=== PATIENT | male | born 1960 | race Caucasian/White ===

== ENCOUNTER → 2020-04-26 | Outpatient (CLI) | payer BC ==
--- NOTE | 2020-04-26 11:35 | XR ---
EXAMINATION TYPE: XR knee complete RT DATE OF EXAM: 04/26/2020 CLINICAL HISTORY: Increased generalized knee pain TECHNIQUE: Three views of the right knee are obtained. COMPARISON: None. FINDINGS: There is no acute fracture/dislocation evident in right knee. Moderate narrowing patellofe moral compartment with mild spurring. Mild to moderate narrowing medial tibiofemoral compartment. The overlying soft tissue appears unremarkable. IMPRESSION: As above.
--- NOTE | 2020-04-26 12:00 | XR ---
EXAMINATION TYPE: XR lumbosacral spine min 4V DATE OF EXAM: 04/26/2020 CLINICAL HISTORY: Chronic worsening low back pain. TECHNIQUE: Frontal, lateral, and oblique images of the lumbar spine are obtained. COMPARISON: None FINDINGS: There are 5 lumbar type vertebral bodies identified. There is dextroconvex scoliosis cente red at L2 level. Lateral images show straightening of lumbar spine. Vertebral body heights are mainta ined. Mild to moderate disc space narrowing and spurring L3-L4 level. Mild anterior spurring L1-L2 an d L2-L3 levels. Oblique images are within normal limits. Mild vascular calcification overlying abdomi nal aorta is noted. IMPRESSION: As above.
== END | disposition home or self-care (01) ==
LOC: RADXRYALE 10:50
PROVIDERS: ATTEND Family Medicine
DX: M25.861 Other specified joint disorders, right knee (principal); M25.761 Osteophyte, right knee; M99.73 Connective tissue and disc stenosis of intervertebral foramina of lumbar region; M41.86 Other forms of scoliosis, lumbar region; M53.86 Other specified dorsopathies, lumbar region
CPT/HCPCS: 72110

== ENCOUNTER → 2021-06-27 | Outpatient (CLI) | payer BC ==
--- NOTE | 2021-06-27 16:11 | XR ---
EXAMINATION TYPE: XR Hip Complete LT DATE OF EXAM: 06/27/2021 CLINICAL HISTORY: Worsening left hip pain. TECHNIQUE: AP and frogleg views of the left hip are obtained. COMPARISON: None. FINDINGS: There is no acute fracture/dislocation evident in the left hip. There is advanced superior joint space loss with [id number] appearance and endplate sclerosis. There is beginning loss of nor mal spherical shape with mild to moderate acetabular spurring. Overlying soft tissue is unremarkable. IMPRESSION: As above. Advanced left hip joint arthropathy noted. Advise orthopedic surgical referral.
== END | disposition home or self-care (01) ==
LOC: RADXRYALE 14:48
PROVIDERS: ATTEND Family Medicine
DX: M12.852 Other specific arthropathies, not elsewhere classified, left hip (principal); M25.752 Osteophyte, left hip
CPT/HCPCS: 73502

== ENCOUNTER 2023-11-04 14:08 | Emergency (ER) | payer BC ==
[2023-11-04 14:19] VITALS: PULSE 64
--- NOTE | 2023-11-04 14:36 | ED ---
Extremity Problem HPI - General Chief complaint: Extremity Problem,Nontraumatic Stated complaint: leg pain/swelling Time Seen by Provider: 11/04/23 14:20 Source: patient, RN notes reviewed Mode of arrival: ambulatory Limitations: no limitations - History of Present Illness Initial comments: This is a 63-year-old male with no significant past medical history who presents to the emergency department referral from urgent care for chief complaint of left lower extremity calf cramping since Saturday. Patient was advised to report to the emergency department to rule out possible blood clot. Patient is having pain with ambulation plantarflexion and dorsiflexion of the left foot. Patient states that the cramping is constant and is described as a squeezing sensation. Patient denies symptoms of dysphagia, heart palpitations, dizziness, lightheadedness. Patient denies history of DVT, PE, MT, CVA. Denies blood thinner use. - Related Data Allergies Allergy/AdvReac Type Severity Reaction Status Date / Time No Known Allergies Allergy Verified 11/04/23 14:19 Review of Systems ROS Statement: Those systems with pertinent positive or pertinent negative responses have been documented in the HPI. ROS Other: All systems not noted in ROS Statement are negative. Past Medical History Past Medical History: No Reported History History of Any Multi-Drug Resistant Organisms: None Reported Past Surgical History: Joint Replacement, Orthopedic Surgery Past Psychological History: No Psychological Hx Reported Smoking Status: Current every day smoker Past Alcohol Use History: None Reported Past Drug Use History: None Reported General Exam Limitations: no limitations General appearance: alert, in no apparent distress Head exam: Present: atraumatic, normocephalic, normal inspection Eye exam: Present: normal appearance, PERRL, EOMI. Absent: scleral icterus, conjunctival injection, periorbital swelling ENT exam: Present: normal exam, mucous membranes moist Neck exam: Present: normal inspection. Absent: tenderness, meningismus, lymphadenopathy Respiratory exam: Present: normal lung sounds bilaterally. Absent: respiratory distress, wheezes, rales, rhonchi, stridor Cardiovascular Exam: Present: regular rate, normal rhythm, normal heart sounds. Absent: systolic murmur, diastolic murmur, rubs, gallop, clicks GI/Abdominal exam: Present: soft, normal bowel sounds. Absent: distended, tenderness, guarding, rebound, rigid Left Lower Leg exam: Present: tenderness, swelling (tortuous dialted vessels). Absent: normal inspection, erythema (posteror calf with palpation and ROM of ankle), palpable cord Neurovascular tendon exam: Present: no vascular compromise Gait: observed and normal Back exam: Present: normal inspection Neurological exam: Present: alert, oriented X3, CN II-XII intact Psychiatric exam: Present: normal affect, normal mood Skin exam: Present: warm, dry, intact, normal color. Absent: rash Course Vital Signs 11/04/23 14:16 Temperature 97.4 F L Pulse Rate 64 Respiratory 20 Rate Blood Pressure 138/78 O2 Sat by Pulse 99 Oximetry Medical Decision Making - Medical Decision Making Was pt. sent in by a medical professional or institution (, PA, LUMBER SORTER MACHINE, urgent care, hospital, or fpc...) When possible be specific @ -Sent in by urgent care to rule out a possible blood clot of the left lower extremity. Did you speak to anyone other than the patient for history (EMS, parent, family, police, friend...)? What history was obtained from this source @ -No Did you review nursing and triage notes (agree or disagree)? Why? @ -I reviewed and agree with nursing and triage notes Were old charts reviewed (outside hosp., previous admission, EMS record, old EKG, old radiological studies, urgent care reports/EKG's, fpc records)? Report findings @ -No old charts were reviewed Differential Diagnosis (chest pain, altered mental status, abdominal pain women, abdominal pain men, vaginal bleeding, weakness, fever, dyspnea, syncope, headache, dizziness, GI bleed, back pain, seizure, CVA, palpatations, mental health, musculoskeletal)? @ -venous insufficiency, deep vein thrombosis, superficial thrombophlebitis, veins, this list is not all inclusive. EKG interpreted by me (3pts min.). @ -None X-rays interpreted by me (1pt min.). @ -None done CT interpreted by me (1pt min.). @ -None done U/S interpreted by me (1pt. min.). @ -Venous duplex ultrasound of the left lower extremity is negative for deep vein thrombosis. Occlusion of the arterial vascular suggested the mid and distal popliteal artery. What testing was considered but not performed or refused? (CT, X-rays, U/S, labs)? Why? @ -Labs and EKG were considered but deferred at this time due to patient not expressing any symptoms of pulmonary embolism including shortness of breath, shortness of breath on exertion, tachycardia. What meds were considered but not given or refused? Why? @ -None Did you discuss the management of the patient with other professionals (professionals i.e. , PA, LUMBER SORTER MACHINE, lab, RT, psych nurse, social science instructor, administrative secretary, teacher, state highway police officer, telephonic nurse case manager)? Give summary @ -No Was smoking cessation discussed for >3mins.? @ -No Was critical care preformed (if so, how long)? @ -No Were there social determinants of health that impacted care today? How? (Homelessness, low income, unemployed, alcoholism, drug addiction, transportation, low edu. Level, literacy, decrease access to med. care, [facility], rehab)? @ -No Was there de-escalation of care discussed even if they declined (Discuss DNR or withdrawal of care, Hospice)? DNR status @ -No What co-morbidities impacted this encounter? (DM, HTN, Smoking, COPD, CAD, Cancer, CVA, ARF, Chemo, Hep., AIDS, mental health diagnosis, sleep apnea, morbid obesity)? @ -None Was patient admitted / discharged? Hospital course, mention meds given and route, prescriptions, significant lab abnormalities, going to OR and other pe rtinent info. @ -63-year-old male with left calf pain. On examination patient has pain to the left calf with plantar and dorsiflexion. Additionally there is pain with palpation of the left calf. There is no palpable cord, or erythema. Patient's foot is blanchable with pressure, cap refill intact, 1+ pedal pulse. Foot is mildly edematous with signs of varicose veins. At this time patient will be sent for ultrasound of the left lower extremity for further evaluation. No negative for DVT, however reveals occlusion of the arterial vasculature. When the patient use compression stockings and follow-up outpatient with vascular specialist that has been provided as consult. All questions answered at bedside and strict return parameters have been discussed with the patient which she has verbalized understanding. Case discussed with my attending Dr. Campos. Undiagnosed new problem with uncertain prognosis? @ -No Drug Therapy requiring intensive monitoring for toxicity (Heparin, Nitro, In sulin, Cardizem)? @ -No Were any procedures done? @ -No Diagnosis/symptom? @ -Intermittent claudication, peripheral vascular disease Acute, or Chronic, or Acute on Chronic? @ -acute Uncomplicated (without systemic symptoms) or Complicated (systemic symptoms)? @ -uncomplicated Side effects of treatment? @ -No Exacerbation, Progression, or Severe Exacerbation? @ -No Poses a threat to life or bodily function? How? (Chest pain, USA, MT, pneumonia, PE, COPD, DKA, ARF, appy, cholecystitis, CVA, Diverticulitis, Homicidal, Suicidal, threat to staff... and all critical care pts) @ -No Disposition Clinical Impression: Intermittent claudication, Peripheral vascular disease, Pain of left calf Disposition: HOME SELF-CARE Condition: Good Instructions (If sedation given, give patient instructions): Peripheral Vascular Disease (ED) Additional Instructions: Return to the emergency department if your symptoms worsen or not improve. Recommend use of compression stockings at home. Additionally, follow-up outpatient with provided vascular specialist for further evaluation. Is patient prescribed a controlled substance at d/c from ED?: No Referrals: Wily Farley DO [Primary Care Provider] - 1-2 days Chin Mariee DO [STAFF PHYSICIAN] - 1-2 days Time of Disposition: 15:36
[2023-11-04] MEDS: KETOROLAC 15 MG/ML 1 ML VIAL IM STA (14:45)
--- NOTE | 2023-11-04 15:22 | US ---
EXAMINATION TYPE: US venous doppler duplex LE LT DATE OF EXAM: 11/04/2023 3:16 PM COMPARISON: NONE CLINICAL INDICATION: Male, 63 years old with history of cramping, pain X3 days; Left calf cramping. No redness or swelling. SIDE PERFORMED: Left TECHNIQUE: The lower extremity deep venous system is examined utilizing real time linear array sonog hakan with graded compression, doppler sonography and color-flow sonography. VESSELS IMAGED: Common Femoral Vein Deep Femoral Vein Greater Saphenous Vein * Femoral Vein Popliteal Vein Small Saphenous Vein * Proximal Calf Veins (* superficial vessels) Left Leg: Negative for DVT. Grayscale, color doppler, spectral doppler imaging performed of the nahed p veins of the lower extremities. There is normal flow, compressibility, vascular waveforms. Mid and distal popliteal artery appears completely occluded. Trace vascular flow seen in proximal po pliteal artery. IMPRESSION: 1. No evidence for deep vein tendinosis. 2. Occlusion of the arterial vasculature suggested. Consider further evaluation with catheter lab an giography.
[2023-11-04 15:48] VITALS: BP 127/80; RESP 18; TEMP 98.1
== END 2023-11-04 16:03 | disposition home or self-care (01) ==
LOC: EC 14:08
DX: I73.9 Peripheral vascular disease, unspecified (principal); F17.200 Nicotine dependence, unspecified, uncomplicated
CPT/HCPCS: 93971; 99283; 96372; J1885

== ENCOUNTER 2023-11-07 09:12 | Inpatient (IN) | payer BC ==
[2023-11-07] MEDS ORDERED: HEPARIN SODIUM 1,000 UN/ML (10ML VL) IV PRN (09:40)
--- NOTE | 2023-11-07 10:04 | ED ---
General Adult HPI - General Chief complaint: Extremity Injury, Lower Stated complaint: L Leg Pain Time Seen by Provider: 11/07/23 09:30 Source: patient, RN notes reviewed, old records reviewed Mode of arrival: ambulatory Limitations: no limitations - History of Present Illness Initial comments: Patient is a 63-year-old male who presents emergency department with known left popliteal arterial occlusion. Was sent here from his vascular surgeons office, Dr. Crowell for admission for surgery. Endorses left calf pain, as well as some paresthesias. Still able to move the left foot. Symptoms have been ongoing on Saturday. Patient did have an ultrasound performed on November 04, 2023 which showed the occlusion of the left popliteal artery. Has been having symptoms since then. Saw Dr. Crowell in the office today and was sent here for admission for treatment. Denies any other acute complaints at this time. No history of blood clots. Is not on blood thinners. Presents for further evaluation. Recently did have left hip surgery approximately 7 months ago. - Related Data Home Medications Medication Instructions Recorded Confirmed No Known Home Medications 11/07/23 11/07/23 Allergies Allergy/AdvReac Type Severity Reaction Status Date / Time No Known Allergies Allergy Verified 11/07/23 09:58 Review of Systems ROS Statement: Those systems with pertinent positive or pertinent negative responses have been documented in the HPI. Review of Systems: CONST: Denies fever EYES: Denies blurry vision ENT: Denies nasal congestion C/V: Denies Chest pain RESP: Denies shortness of breath GI: Denies abdominal pain : Denies dysuria SKIN: Denies rash. MSK: Endorses left calf pain NEURO: Denies headache ROS Other: All systems not noted in ROS Statement are negative. Past Medical History Past Medical History: No Reported History History of Any Multi-Drug Resistant Organisms: None Reported Past Surgical History: Joint Replacement, Orthopedic Surgery Additional Past Surgical History / Comment(s): left hip replacement Past Psychological History: No Psychological Hx Reported Smoking Status: Current every day smoker Past Alcohol Use History: None Reported Past Drug Use History: None Reported General Exam - General Exam Comments Initial Comments: General: Appears in mild distress secondary to left calf pain. HEAD: Normal with no signs of head trauma. EYES: PERRLA, EOMI, conjunctiva normal, no discharge. ENT: Hearing grossly intact, normal oropharynx. RESPIRATORY: Clear breath sounds bilaterally. No wheezes, rales, or rhonchi. C/V: Regular rate and rhythm. S1 and S2 auscultated. Difficult to palpate pulses in the left distal foot. Left distal foot is colder than the right. ABD: Abd is soft, nontender, nondistended EXT: Normal range of motion, no obvious deformity. Tenderness to palpation of the left calf. Still able to move the left foot and ankle. SKIN: No rashes or lesions observed on exposed skin. NEURO: Alert and oriented x 4. Limitations: no limitations Course Vital Signs 11/07/23 09:18 Temperature 98.1 F Pulse Rate 62 Respiratory 18 Rate Blood Pressure 149/83 O2 Sat by Pulse 98 Oximetry Medical Decision Making - Medical Decision Making Was pt. sent in by a medical professional or institution (, PA, FIELD RECRUITER, urgent care, hospital, or [facility]...) When possible be specific @ -No Did you speak to anyone other than the patient for history (EMS, parent, family, police, friend...)? What history was obtained from this source @ -No Did you review nursing and triage notes (agree or disagree)? Why? @ -I reviewed and agree with nursing and triage notes Were old charts reviewed (outside hosp., previous admission, EMS record, old EKG, old radiological studies, urgent care reports/EKG's, [facility] records)? Report findings @ -No old charts were reviewed Differential Diagnosis (chest pain, altered mental status, abdominal pain women, abdominal pain men, vaginal bleeding, weakness, fever, dyspnea, syncope, headache, dizziness, GI bleed, back pain, seizure, CVA, palpatations, mental health, musculoskeletal)? @ -Popliteal artery occlusion, arterial occlusion, this list is not all inclusive. EKG interpreted by me (3pts min.). @ -None done X-rays interpreted by me (1pt min.). @ -None done CT interpreted by me (1pt min.). @ -None done U/S interpreted by me (1pt. min.). @ -None done What testing was considered but not performed or refused? (CT, X-rays, U/S, labs)? Why? @ -None What meds were considered but not given or refused? Why? @ -None Did you discuss the management of the patient with other professionals (professionals i.e. , PA, FIELD RECRUITER, lab, RT, psych nurse, social sciences lecturer, automotive leasing sales representative, teacher, command center officer, case technician)? Give summary @ -Sent by vascular surgeon Dr. Crowell for admission for popliteal artery occlusion of the left lower extremity. I contacted Dr. Hein who is on-call who requested patient be made n.p.o., patient be initiated on heparin drip, and basic labs to be obtained. Patient be admitted to medicine with vascular surgery on-call. I spoke with the admitting team, Dr. Olvera who accepted the admission. Was smoking cessation discussed for >3mins.? @ -No Was critical care preformed (if so, how long)? @ -Yes, 31 minutes. Were there social determinants of health that impacted care today? How? (Homelessness, low income, unemployed, alcoholism, drug addiction, transportation, low edu. Level, literacy, decrease access to med. care, longterm, rehab)? @ -No Was there de-escalation of care discussed even if they declined (Discuss DNR or withdrawal of care, Hospice)? DNR status @ -No What co-morbidities impacted this encounter? (DM, HTN, Smoking, COPD, CAD, Cancer, CVA, ARF, Chemo, Hep., AIDS, mental health diagnosis, sleep apnea, morbid obesity)? @ -None Was patient admitted / discharged? Hospital course, mention meds given and route, prescriptions, significant lab abnormalities, going to OR and other per tinent info. @ -Presents for admission for surgery for left popliteal arterial occlusion. Spoke with vascular surgery as he was sent by vascular surgeon and they were in agreement with admission with patient be initiated on heparin drip, pain meds, IV fluids, and patient be made n.p.o. Patient was in agreement this plan. Preop labs obtained. Patient will be admitted to medicine. I spoke with Dr. Olvera of the admitting team who accepted the admission. Patient's labs returned unremarkable. Undiagnosed new problem with uncertain prognosis? @ -No Drug Therapy requiring intensive monitoring for toxicity (Heparin, Nitro, Insulin, Cardizem)? @ -Heparin Were any procedures done? @ -No Diagnosis/symptom? @ -Left popliteal arterial occlusion Acute, or Chronic, or Acute on Chronic? @ -Acute Uncomplicated (without systemic symptoms) or Complicated (systemic symptoms)? @ -Complicated Side effects of treatment? @ -No Exacerbation, Progression, or Severe Exacerbation? @ -No Poses a threat to life or bodily function? How? (Chest pain, USA, [place], pneumonia, PE, COPD, DKA, ARF, appy, cholecystitis, CVA, Diverticulitis, Homicidal, Suicidal, threat to staff... and all critical care pts) @ -Yes - Lab Data Result diagrams: 11/07/23 09:56 11/07/23 09:56 Lab Results 11/07/23 11/07/23 11/07/23 Range/Units 09:56 09:56 09:56 WBC 10.5 (3.8-10.6) k/uL RBC 4.36 (4.30-5.90) m/uL Hgb 13.6 (13.0-17.5) gm/dL Hct 43.1 (39.0-53.0) % MCV 98.9 (80.0-100.0) fL MCH 31.2 (25.0-35.0) pg MCHC 31.5 (31.0-37.0) g/dL RDW 13.6 (11.5-15.5) % Plt Count 213 (150-450) k/uL MPV 8.3 Neutrophils % 77 % Lymphocytes % 12 % Monocytes % 8 % Eosinophils % 1 % Basophils % 1 % Neutrophils # 8.1 H (1.3-7.7) k/uL Lymphocytes # 1.3 (1.0-4.8) k/uL Monocytes # 0.8 (0-1.0) k/uL Eosinophils # 0.2 (0-0.7) k/uL Basophils # 0.1 (0-0.2) k/uL PT 11.6 (10.0-12.5) sec INR 1.1 (<1.2) APTT 24.9 (22.0-30.0) sec Sodium 141 (137-145) mmol/L Potassium 4.2 (3.5-5.1) mmol/L Chloride 105 (98-107) mmol/L Carbon Dioxide 31 H (22-30) mmol/L Anion Gap 5 mmol/L BUN 17 (9-20) mg/dL Creatinine 0.73 (0.66-1.25) mg/dL Est GFR (CKD-EPI)AfAm >90 (>60 ml/min/1.73 sqM) Est GFR (CKD-EPI)NonAf >90 (>60 ml/min/1.73 sqM) Glucose 103 H (74-99) mg/dL Plasma Lactic Acid Ricki (0.7-2.0) mmol/L Calcium 9.1 (8.4-10.2) mg/dL Total Bilirubin 0.7 (0.2-1.3) mg/dL AST 79 H (17-59) U/L ALT 40 (4-49) U/L Alkaline Phosphatase 61 (38-126) U/L Total Protein 6.6 (6.3-8.2) g/dL Albumin 4.4 (3.5-5.0) g/dL 11/07/23 Range/Units 09:56 WBC (3.8-10.6) k/uL RBC (4.30-5.90) m/uL Hgb (13.0-17.5) gm/dL Hct (39.0-53.0) % MCV (80.0-100.0) fL MCH (25.0-35.0) pg MCHC (31.0-37.0) g/dL RDW (11.5-15.5) % Plt Count (150-450) k/uL MPV Neutrophils % % Lymphocytes % % Monocytes % % Eosinophils % % Basophils % % Neutrophils # (1.3-7.7) k/uL Lymphocytes # (1.0-4.8) k/uL Monocytes # (0-1.0) k/uL Eosinophils # (0-0.7) k/uL Basophils # (0-0.2) k/uL PT (10.0-12.5) sec INR (<1.2) APTT (22.0-30.0) sec Sodium (137-145) mmol/L Potassium (3.5-5.1) mmol/L Chloride (98-107) mmol/L Carbon Dioxide (22-30) mmol/L Anion Gap mmol/L BUN (9-20) mg/dL Creatinine (0.66-1.25) mg/dL Est GFR (CKD-EPI)AfAm (>60 ml/min/1.73 sqM) Est GFR (CKD-EPI)NonAf (>60 ml/min/1.73 sqM) Glucose (74-99) mg/dL Plasma Lactic Acid Ricki 1.4 (0.7-2.0) mmol/L Calcium (8.4-10.2) mg/dL Total Bilirubin (0.2-1.3) mg/dL AST (17-59) U/L ALT (4-49) U/L Alkaline Phosphatase (38-126) U/L Total Protein (6.3-8.2) g/dL Albumin (3.5-5.0) g/dL Critical Care Time Critical Care Time: Yes Total Critical Care Time: 31 Disposition Clinical Impression: Left popliteal artery occlusion Disposition: ADMITTED IP TO THIS [facility] Condition: Serious Time of Disposition: 10:00
[2023-11-07] MEDS ORDERED: NALOXONE 0.4 MG/ML 1 ML VIAL IV PRN (10:06)
[2023-11-07] MEDS ORDERED: MORPHINE SULFATE 4 MG/ML SYRINGE IV PRN (10:06)
[2023-11-07 10:27] LABS: Basophils # (A) 0.1 k/uL (0-0.2); Basophils % (A) 1 %; Eosinophils # (A) 0.2 k/uL (0-0.7); Eosinophils % (A) 1 %; HCT 43.1 % (39.0-53.0); HGB 13.6 gm/dL (13.0-17.5); Lymphocytes # (A) 1.3 k/uL (1.0-4.8); Lymphocytes % (A) 12 %; MCH 31.2 pg (25.0-35.0); MCHC 31.5 g/dL (31.0-37.0); MCV 98.9 fL (80.0-100.0); Mean Platelet Volume 8.3; Monocytes # (A) 0.8 k/uL (0-1.0); Monocytes % (A) 8 %; Neutrophils # (A) 8.1 k/uL (1.3-7.7); Neutrophils % (A) 77 %; Platelet Count 213 k/uL (150-450); RBC 4.36 m/uL (4.30-5.90); RDW 13.6 % (11.5-15.5); WBC 10.5 k/uL (3.8-10.6)
[2023-11-07] MEDS: HEPARIN SODIUM 1,000 UN/ML (10ML VL) IV ONE (10:35)
[2023-11-07] MEDS: HEPARIN SOD,PORK IN 0.45% NACL 25,000 UNIT in 0.45% NACL 1 250ML.BAG IV SCH ×2 (10:40→20:56)
[2023-11-07 10:48] LABS: INR 1.1 (<1.2); Partial Thromboplastin Time 24.9 sec (22.0-30.0); Prothrombin Time 11.6 sec (10.0-12.5)
[2023-11-07 10:54] LABS: ALT 40 U/L (4-49); AST 79 U/L (17-59); African American GFR (CKD) >90 (>60 ml/min/1.73 sqM); Albumin 4.4 g/dL (3.5-5.0); Alkaline Phosphatase 61 U/L (38-126); Anion Gap 5 mmol/L; Blood Urea Nitrogen 17 mg/dL (9-20); Calcium 9.1 mg/dL (8.4-10.2); Carbon Dioxide 31 mmol/L (22-30); Chloride 105 mmol/L (98-107); Glucose 103 mg/dL (74-99); Non-African American GFR(CKD) >90 (>60 ml/min/1.73 sqM); Potassium 4.2 mmol/L (3.5-5.1); Sodium 141 mmol/L (137-145); Total Bilirubin 0.7 mg/dL (0.2-1.3); Total Protein 6.6 g/dL (6.3-8.2)
[2023-11-07] MEDS: SODIUM CHLORIDE 0.9% 1,000 ML IV SCH (11:05)
[2023-11-07] MEDS ORDERED: LIDOCAINE 1% INJ 10MG/ML (20 ML MDV) ONE (11:51)
[2023-11-07] MEDS ORDERED: HEPARIN SODIUM 1,000 UN/ML (10ML VL) ONE (12:35)
[2023-11-07] MEDS ORDERED: fentaNYL (PF) 50 MCG/ML 2 ML AMP ONE (12:35)
[2023-11-07] MEDS: fentaNYL (PF) 50 MCG/ML 2 ML AMP IVP ONE (12:40)
[2023-11-07] MEDS: MIDAZOLAM 2 MG/2 ML VIAL IVP ONE (12:40)
[2023-11-07] MEDS: LIDOCAINE 1% INJ 10MG/ML (20 ML MDV) SQ ONE (12:42)
--- NOTE | 2023-11-07 12:54 | P.GSCN ---
History of Present Illness Consult date: 11/07/23 Reason for Consult: Left lower extremity arterial occlusion Requesting physician: Tyler Cottrell History of present illness: This is a pleasant 63-year-old male who had presented to the emergency department on 11/04/2023 for complaints of left lower extremity swelling and pain. He had a venous duplex of the left lower extremity that reported negative for DVT however reported mid and distal popliteal artery appeared completely occluded. Trace vascular flow seen in proximal popliteal artery. Patient was discharged from the emergency department and told to apply compression stockings and see a vascular surgeon. He was seen in vascular surgery office today for arterial Dopplers and sent to the emergency department for popliteal artery occlusion. He states he has no significant past medical history other than previous right hip replacement in April 2023 and current smoker 40 years which states he is down to half a pack a day. Reports pain started Saturday afternoon and has progressively gotten worse. Most of the pain is in his Nothing seems to improve it other than sitting with it dependent. He is able to move his foot and his toes. States that he has had varicosities in his left lower extremity for some time. He denies any shortness of breath or chest pain. Denies any previous history of gastrointestinal bleed or brain bleed. And again last surgery was May 14, 2023 for left hip replacement. Arterial ultrasound lower extremity with findings of right lower extremity MARLYN 1.12 and left lower extremity MARLYN 0.47. Right TBI 0.61 left TBI 0.38 Review of Systems A 14 point review systems was completed all pertinent positives and negatives as stated in the HPI. Past Medical History Past Medical History: No Reported History History of Any Multi-Drug Resistant Organisms: None Reported Past Surgical History: Joint Replacement, Orthopedic Surgery Additional Past Surgical History / Comment(s): left hip replacement Past Psychological History: No Psychological Hx Reported Smoking Status: Current every day smoker Past Alcohol Use History: None Reported Past Drug Use History: None Reported Medications and Allergies Home Medications Medication Instructions Recorded Confirmed Type No Known Home Medications 11/07/23 11/07/23 History Allergies Allergy/AdvReac Type Severity Reaction Status Date / Time No Known Allergies Allergy Verified 11/07/23 09:58 Surgical - Exam Vital Signs Temp Pulse Resp BP Pulse Ox 98.1 F 62 18 149/83 98 11/07/23 09:18 11/07/23 09:18 11/07/23 09:18 11/07/23 09:18 11/07/23 09:18 General appearance: The patient is alert, oriented, appears in no acute dis tress. HET: Head is normocephalic and atraumatic. Pupils are equal and reactive. Neck: Supple. Heart: Regular. Lungs: Equal expansion, normal respiratory effort. Abdomen: Soft, nontender, nondistended. Extremities: Right lower extremity with palpable femoral, popliteal, PT and DP pulses. Normal skin color and turgor warm to the touch. Left palpable femoral pulse, nonpalpable popliteal, PT and DP pulses. Left lower extremity with varicosities, foot cool to the touch with decreased capillary refill. Calf tenderness. Sensorimotor intact. Patient is able to flex ankle and move his toes. Neurological: No focal deficits. Strength and sensation are grossly intact. Results - Labs 11/07/23 09:56 11/07/23 09:56 - Imaging Comments: Venous duplex left lower extremity done 11/04/2023 reports no evidence for deep vein thrombosis Occlusion of the arterial vasculature suggested. Consider further evaluation with catheter lab angiography. Reporting mid and distal popliteal artery appears completely occluded. Trace vascular flow seen in proximal popliteal artery Assessment and Plan Assessment: 1. Acute left lower extremity ischemia 2. Left popliteal artery occlusion 3. Left lower extremity calf pain 4. Current smoker Plan: 1. Start heparin drip 2. Obtain CBC, CMP, type and screen 3. Patient scheduled for left lower extremity angiogram with possible thrombectomy, tPA thrombolysis and possible fasciotomy. Procedure discussed with patient including risks and benefits and patient is willing to proceed. 4. Rest of medical management per primary medical team Thank you for this consultation, we will continue to follow. The impression and plan of care has been dictated as directed. I performed a history and examination of this patient, discussed the same with the dictator. I agree with the dictator's note ,documented as a scribe. Any additional findings or plans will be noted.
[2023-11-07] MEDS: IOPAMIDOL-250 100ML BTL INTRAARTER ONE (13:25)
[2023-11-07] MEDS: ALTEPLASE 10 MG in SODIUM CHLORIDE 0.9% 90 ML IA ONE (13:25)
[2023-11-07] MEDS: SODIUM CHLORIDE 0.9% 1,000 ML IV ONE (13:31)
[2023-11-07 13:41] LABS: Glucose,Whole Blood 89 mg/dL (70-110)
--- NOTE | 2023-11-07 13:51 | P.OP ---
Date of Procedure: 11/07/23 Description of Procedure: \Preoperative diagnosis: Acute left lower extremity ischemia Postoperative diagnosis: Same Procedure: Ultrasound-guided right common femoral artery access Selective left lower extremity angiogram second order to distal superficial femoral artery Right iliofemoral angiogram Moderate conscious sedation 36 minutes time. Personal monitoring of certified RN administration with hemodynamic monitoring Surgeon: Aurea Crowell D.O. EBL: Less than 5 cc IV fluids: See records Urine output: Not measured Drains: None Complications: None immediately apparent Condition: Stable to recovery Operative indication and findings: Patient is a 63-year-old male who began having acute onset pain of his left lower extremity beginning last Saturday. He is able to move his foot, he is having some continued rest pain. Prior to this he was able to ambulate without any significant issues or concerns. Denies any significant claudication. He has palpable femoral pulse on the left and palpable pedal pulses on the right. Due to this he was offered an angiogram with potential thrombolytics. Risk and benefits were discussed, he seemingly understood and was willing to proceed. Procedure in detail: The patient was taken the operative suite and placed in supine position. The bilateral groins were prepped and draped in usual sterile fashion. A preprocedural timeout was performed, all parties were in agreement. Using the ultrasound, the right common femoral artery was identified. The ov erlying area was anesthetized with 1% lidocaine plain. Seldinger technique was used, permanent image was stored. The 5 Pashto sheath was placed. A right iliofemoral angiogram was performed showing tortuosity of the vessels but widely patent vessels without any significant stenosis. There is no significant atherosclerotic disease. Catheters and wires were used to access the left selectively. An angiogram was performed via the left common iliac artery showing a widely patent common, external and internal iliac artery. Portions of the common femoral obscured by hardware blood flow is brisk beyond this. A widely patent and robust profunda and superficial femoral artery. Catheters and wires were then used to access the superficial femoral artery. Flow abruptly occluded at the level of the adductor canal. There is some areas of collateral channel. There is reconstitution of the vessel individually at the tibial vessels. First seen is the posterior tibial vessel followed by the anterior tibial and subsequently the peroneal vessel. No popliteal vessel is visualized. No tibioperoneal trunk is visualized. Catheters and wires were then used to cross the lesion. There was difficulty in passing at the level of popliteal artery behind the knee. Repeat images were performed and there was flow through the channel with evidence of thrombus. Due to this and the ease of the initial passing of wire it was decided to place a thrombolysis catheter. A 20 cm infusion, 135 length catheter was placed and secured. Dressings were placed and patient was transferred to ICU in stable condition..
[2023-11-07] MEDS: MORPHINE SULFATE 4 MG/ML SYRINGE IVP STA (14:02)
[2023-11-07] MEDS: ACETAMINOPHEN TAB 325 MG TAB PO PRN (15:19)
--- NOTE | 2023-11-07 15:57 | IR ---
EXAMINATION TYPE: IR thrombolysis cath exchange Intraoperative/procedural fluoroscopic services were provided. CLINICAL INDICATION:Male, 63 years old with history of left leg pain, 10.7min fluoro, [id number]; , PH H Total fluoroscopy time is 10.7 min. DAP: 2.38 Gycm2 uGym2 Please see the operative/procedural note for further details.
--- NOTE | 2023-11-07 16:40 | P.HPIM ---
History of Present Illness H&P Date: 11/07/23 63 year old M with PMH of PPD smoking presents to the ED after being directed by his vascular surgeon for popliteal artery occlusion. He reports cramping in his left calf that started on 11/03 that was relentless. His foot felt hard and progressively got swollen throughout the day. He was seen in the ED on 11/03 where venous doppler was performed. Venous doppler 11/03 shows occlusion of the arterial vasculature. He was discharged from the ED at that time and given an appointment with vascular surgery. He reports smoking 1 PPD. He denies any other medical issues. Denies chest pain, SOB, palpitations, dizziness. In the ED he underwent extensive evaluation. BP 149/83, HR 62, T 98.1, RR 18, 98% on RA. CBC, Coag panel, CMP performed significant for neutrophils 8.1, bicarb 31, glu 103, AST 79. Lactic acid 1.4. Venous doppler 11/03 shows occlusion of the arterial vasculature. He underwent US guided right common femoral artery access, selective left lower extremity angiogram to distal superficial femoral artery, right iliofemoral angiogram and placement of thrombolysis catheter with Dr. Crowell on 11/06. Patient was seen in the ICU after his procedure. Alteplase infusion. He reports no pain. General: no distress, appears at stated age Derm: warm, dry Head: atraumatic, normocephalic, symmetric Eyes: EOMI, no lid lag, anicteric sclera Mouth: no lip lesion, mucus membranes moist Cardiovascular: S1S2 reg, no murmur, 1+ DP pulse LLE Lungs: CTA bilateral, no rhonchi, no rales , no accessory muscle use Abdominal: soft, nontender to palpation, no guarding, no appreciable organomegaly Ext: no gross muscle atrophy, no edema, no contractures Neuro: no focal neuro deficits Psych: Alert, oriented, appropriate affect Based on my assessment of this patient, this patient meets a high complexity level of care. Acute left lower extremity ischemia: Discussed with Dr. Crowell, plans for return to OR tomorrow. Continue Heparin drip at 12 units/kg/hr. Continue Alteplase infusion. Morphine 4 mg IV Q2H PRN for pain. Vascular surgery on board. Left popliteal artery occlusion Transaminitis: Obtain A1c, Lipid panel. Smoker: Advised to quit. CODE STATUS: FULL CODE DVT Prophylaxis: Heparin drip GI Prophylaxis: Designated medical POA if patient is not able to make medical decisions for themselves: I have reviewed the following wedding consultant notes: ED, Vascular note. I have reviewed the results of the following tests: As above. I have ordered the following tests: Monitor coag while on heparin drip. CBC ordered for tomorrow morning. I have discussed the care of this patient with the following independent historian: I have independently interpreted the following test below: I have discussed the management of this patient with the following physician: Dr. Crowell Past Medical History Past Medical History: No Reported History History of Any Multi-Drug Resistant Organisms: None Reported Past Surgical History: Joint Replacement, Orthopedic Surgery Additional Past Surgical History / Comment(s): left hip replacement Past Anesthesia/Blood Transfusion Reactions: No Reported Reaction Past Psychological History: No Psychological Hx Reported Smoking Status: Current every day smoker Past Alcohol Use History: None Reported Past Drug Use History: None Reported Medications and Allergies Home Medications Medication Instructions Recorded Confirmed Type No Known Home Medications 11/07/23 11/07/23 History Allergies Allergy/AdvReac Type Severity Reaction Status Date / Time No Known Allergies Allergy Verified 11/07/23 09:58 Physical Exam Vitals: Vital Signs Temp Pulse Resp BP Pulse Ox 11/07/23 15:00 97.5 F L 46 L 16 136/82 97 11/07/23 14:00 51 L 17 146/86 96 11/07/23 13:43 98 11/07/23 09:18 98.1 F 62 18 149/83 98 Intake and Output 11/07/23 11/07/23 11/07/23 06:59 14:59 22:59 Intake Total 101 130 Output Total 0 Balance 101 130 Intake: IV 101 130 Sodium Chloride 0.9% 1, 130 000 ml @ 130 mls/hr IV . Q7H42M [facility] Rx#:[id number] Output: Urine 0 Other: Weight 61.235 kg Results CBC & Chem 7: 11/07/23 09:56 11/07/23 09:56 Labs: Abnormal Lab Results - Last 24 Hours (Table) 11/07/23 11/07/23 Range/Units 09:56 09:56 Neutrophils # 8.1 H (1.3-7.7) k/uL Carbon Dioxide 31 H (22-30) mmol/L Glucose 103 H (74-99) mg/dL AST 79 H (17-59) U/L Thrombosis Risk Factor Assmnt - Choose All That Apply Any of the Below Risk Factors Present?: No Other Risk Factors: Yes Each Risk Factor Represents 2 Points: Age 61-74 years Thrombosis Risk Factor Assessment Total Risk Factor Score: 2 Thrombosis Risk Factor Assessment Level: Low Risk
[2023-11-07] MEDS: MORPHINE SULFATE 4 MG/ML SYRINGE IV PRN (17:26)
[2023-11-07] MEDS: NICOTINE 14MG/24HR PATCH TRANSDERM SCH (18:18)
[2023-11-07 21:08] LABS: Basophils # (A) 0.1 k/uL (0-0.2); Basophils % (A) 1 %; Eosinophils # (A) 0.3 k/uL (0-0.7); Eosinophils % (A) 3 %; HCT 39.7 % (39.0-53.0); HGB 12.9 gm/dL (13.0-17.5); Lymphocytes # (A) 1.7 k/uL (1.0-4.8); Lymphocytes % (A) 19 %; MCH 32.7 pg (25.0-35.0); MCHC 32.5 g/dL (31.0-37.0); MCV 100.4 fL (80.0-100.0); Macrocytosis Slight; Mean Platelet Volume 8.2; Monocytes # (A) 0.8 k/uL (0-1.0); Monocytes % (A) 9 %; Neutrophils % (A) 68 %; Platelet Count 179 k/uL (150-450); RBC 3.96 m/uL (4.30-5.90); WBC 8.8 k/uL (3.8-10.6)
[2023-11-08 04:55] LABS: Basophils # (A) 0.1 k/uL (0-0.2); Basophils % (A) 1 %; Eosinophils # (A) 0.1 k/uL (0-0.7); Eosinophils % (A) 2 %; HCT 38.1 % (39.0-53.0); HGB 11.6 gm/dL (13.0-17.5); Lymphocytes % (A) 11 %; MCH 30.7 pg (25.0-35.0); MCHC 30.4 g/dL (31.0-37.0); Macrocytosis Slight; Mean Platelet Volume 8.7; Monocytes # (A) 0.7 k/uL (0-1.0); Monocytes % (A) 8 %; Neutrophils # (A) 6.7 k/uL (1.3-7.7); Neutrophils % (A) 77 %; Platelet Count 169 k/uL (150-450); RBC 3.78 m/uL (4.30-5.90); RDW 13.7 % (11.5-15.5); WBC 8.7 k/uL (3.8-10.6)
[2023-11-08 04:59] LABS: INR 1.2 (<1.2)
[2023-11-08 09:24] LABS: Chol/HDL Ratio 3.74 Ratio; LDL Cholesterol,Calculated 81.6 mg/dL (0.0-131.0)
[2023-11-08] MEDS: ALTEPLASE 2 MG in SODIUM CHLORIDE 0.9% 18 ML IA ONE (09:43)
[2023-11-08] MEDS: IV FLUID CONTINUATION 1,000 ML IV ONE (11:39)
[2023-11-08] MEDS ORDERED: fentaNYL (PF) 50 MCG/ML 2 ML AMP ONE ×2 (11:58→12:48)
[2023-11-08] MEDS ORDERED: LIDOCAINE 1% INJ 10MG/ML (20 ML MDV) ONE ×2 (12:03→12:48)
[2023-11-08] MEDS: fentaNYL (PF) 50 MCG/ML 2 ML AMP IVP ONE ×2 (12:03→12:25)
[2023-11-08] MEDS: LIDOCAINE 1% INJ 10MG/ML (20 ML MDV) SQ ONE (12:03)
[2023-11-08] MEDS: MIDAZOLAM 2 MG/2 ML VIAL IVP ONE (12:03)
--- NOTE | 2023-11-08 12:03 | P.PN ---
Subjective Progress Note Date: 11/08/23 63 year old M with PMH of PPD smoking presents to the ED after being directed by his vascular surgeon for popliteal artery occlusion. He reports cramping in his left calf that started on 11/03 that was relentless. His foot felt hard and progressively got swollen throughout the day. He was seen in the ED on 11/03 where venous doppler was performed. Venous doppler 11/03 shows occlusion of the arterial vasculature. He was discharged from the ED at that time and given an appointment with vascular surgery. He reports smoking 1 PPD. He denies any other medical issues. Denies chest pain, SOB, palpitations, dizziness. In the ED he underwent extensive evaluation. BP 149/83, HR 62, T 98.1, RR 18, 98% on RA. CBC, Coag panel, CMP performed significant for neutrophils 8.1, bicarb 31, glu 103, AST 79. Lactic acid 1.4. Venous doppler 11/03 shows occlusion of the arterial vasculature. He underwent US guided right common femoral artery access, selective left lower extremity angiogram to distal superficial femoral artery, right iliofemoral angiogram and placement of thrombolysis catheter with Dr. Crowell on 11/06. 11/06 Patient was seen in the ICU after his procedure. Alteplase infusion. He reports no pain. 11/07 Patient was seen and examined. No complaints today. Plans for OR this afternoon. CBC Hg 11.6 Hct 38.1 MCV 101. INR 1.2. A1c 5.8. General: no distress, appears at stated age Derm: warm, dry Head: atraumatic, normocephalic, symmetric Eyes: EOMI, no lid lag, anicteric sclera Mouth: no lip lesion, mucus membranes moist Cardiovascular: S1S2 reg, no murmur, 1+ DP pulse LLE Lungs: CTA bilateral, no rhonchi, no rales , no accessory muscle use Abdominal: soft, nontender to palpation, no guarding, no appreciable organomegaly Ext: no gross muscle atrophy, no edema, no contractures Neuro: no focal neuro deficits Psych: Alert, oriented, appropriate affect Based on my assessment of this patient, this patient meets a high complexity level of care. Acute left lower extremity ischemia: Plans for return to OR today. Continue heparin infusion. Continue Alteplase infusion. Morphine 4 mg IV Q2H PRN for pain. Vascular surgery on board. Left popliteal artery occlusion Transaminitis: A1c as above. Lipid panel pending. Smoker: Advised to quit. CODE STATUS: FULL CODE DVT Prophylaxis: Heparin drip. GI Prophylaxis: Designated medical POA if patient is not able to make medical decisions for them selves: I have reviewed the following client insights consultant notes: Vascular note. I have reviewed the results of the following tests: CBC, Coag panel, A1c. I have ordered the following tests: Monitor coag while on heparin drip. CBC ordered for tomorrow morning. Lipid panel pending. I have discussed the care of this patient with the following independent historian: I have independently interpreted the following test below: I have discussed the management of this patient with the following physician: Objective - Vital Signs Vital signs: Vital Signs Temp 98.5 F 11/08/23 04:00 Pulse 57 L 11/08/23 07:00 Resp 17 11/08/23 07:00 BP 108/58 11/08/23 07:00 Pulse Ox 96 11/08/23 07:00 FiO2 Intake & Output 11/07/23 11/08/23 11/08/23 18:59 06:59 18:59 Intake Total 621 3188.581 130 Output Total 0 650 Balance 621 2538.581 130 Weight 61.235 kg 58.4 kg Intake: IV 621 1560 130 Sodium Chloride 0.9% 1, 520 1560 130 000 ml @ 130 mls/hr IV . Q7H42M [facility] Rx#:[id number] Intake, IV Titration 68.581 Amount Heparin Sod,Pork in 0.45% 68.581 NaCl 25,000 unit In 0.45 % NaCl 1 250ml.bag @ 12 UNITS/KG/HR 7.348 mls/hr IV .Q24H [facility] Rx#: [id number] Oral 1560 Output: Urine 0 650 Other: Voiding Method Urinal Urinal # Voids 1 - Labs CBC & Chem 7: 11/08/23 04:03 11/07/23 09:56 Labs: Abnormal Lab Results - Last 24 Hours (Table) 11/07/23 11/07/23 11/07/23 Range/Units 09:56 09:56 20:44 RBC 3.96 L (4.30-5.90) m/uL Hgb 12.9 L (13.0-17.5) gm/dL Hct (39.0-53.0) % MCV 100.4 H (80.0-100.0) fL MCHC (31.0-37.0) g/dL Neutrophils # 8.1 H (1.3-7.7) k/uL PT (10.0-12.5) sec INR (<1.2) Carbon Dioxide 31 H (22-30) mmol/L Glucose 103 H (74-99) mg/dL AST 79 H (17-59) U/L 11/08/23 11/08/23 Range/Units 04:03 04:03 RBC 3.78 L (4.30-5.90) m/uL Hgb 11.6 L (13.0-17.5) gm/dL Hct 38.1 L (39.0-53.0) % MCV 101.0 H (80.0-100.0) fL MCHC 30.4 L (31.0-37.0) g/dL Neutrophils # (1.3-7.7) k/uL PT 13.0 H (10.0-12.5) sec INR 1.2 H (<1.2) Carbon Dioxide (22-30) mmol/L Glucose (74-99) mg/dL AST (17-59) U/L
[2023-11-08] MEDS: NITROGLYCERIN 1000MCG/10ML SYRINGE INTRAARTER ONE (12:22)
[2023-11-08] MEDS: IOPAMIDOL-250 100ML BTL INTRAARTER ONE (12:30)
--- NOTE | 2023-11-08 12:42 | P.OP ---
Date of Procedure: 11/08/23 Description of Procedure: Preoperative diagnosis: Previously placed tPA catheter, limb ischemia Postoperative diagnosis: Same Procedure: [Left lower extremity angiogram via existing catheter Moderate conscious sedation x 27 minutes] Surgeon: Aurea Crowell D.O. EBL: [Less than 10 cc] IV fluids: [See records] Urine output: [Not measured] Drains: [] None Complications: [None immediately apparent] Condition: [Stable] Procedure in detail: [Patient is a 63-year-old male who was initiated on tPA thrombolysis yesterday for popliteal artery occlusion. He is doing better as far as his foot he denies any pain he is having pain in his calf. He has significant improvement with much improved signal at his ankle therefore he is brought back today for repeat images. He was brought to the special suite and placed in supine position. The groins were prepped and draped in usual sterile fashion. A preprocedural timeout was performed, all parties were in agreement. The wire was placed through the previously placed catheter and angiogram was performed. There appeared to be minimal improvement of the flow through the main vessel. Potentially a few centimeters further of blood flow but still with significant blockage at the distal superficial femoral artery with reconstitution of the tibial vessels. There appears to be relatively more profound collateral flow. Multiple attempts again were made to try to traverse the area at the knee which were unsuccessful. Due to this and an improvement clinically, catheters and wires were removed. The sheath was removed and replaced for a short 6 Ukrainian sheath. A Vascade evice was utilized. Due to his significant calf pain and tenderness with palpation of the calf, the thought is a benefit from 4 compartment fasciotomy. This had previously been discussed in the preoperative area and patient will be taken for this at this time. He seemingly understands]
[2023-11-08] MEDS ORDERED: SUCCINYLCHOLINE CHLORIDE 200 MG/10 ML VIAL IV ONE (12:48)
[2023-11-08] MEDS ORDERED: ROCURONIUM 10 MG/ML (5 ML VIAL) IV ONE (12:48)
[2023-11-08] MEDS ORDERED: DEXAMETHASONE SOD PHOSPHATE 4 MG/ML 1 ML VIAL ONE (12:48)
[2023-11-08] MEDS ORDERED: GLYCOPYRROLATE 0.2 MG/ML 2 ML VIAL ONE (12:48)
[2023-11-08] MEDS ORDERED: KETAMINE HCL IN 0.9 % NACL 50 MG/5 ML SYRINGE ONE (12:48)
[2023-11-08] MEDS ORDERED: PROPOFOL 10 MG/ML 20 ML VIAL IV ONE (12:48)
[2023-11-08] MEDS ORDERED: ONDANSETRON 4 MG/2 ML VIAL ONE (12:48)
[2023-11-08] MEDS ORDERED: NEOSTIGMINE 1 MG/ML 10 ML VIAL ONE (12:48)
[2023-11-08] MEDS: SODIUM CHLORIDE 0.9% 1,000 ML IV ONE (12:49)
[2023-11-08] MEDS: HYDROmorphone 0.5 MG/0.5 ML SYRINGE IVP PRN (14:00)
--- NOTE | 2023-11-08 14:06 | P.OP ---
Date of Procedure: 11/08/23 Description of Procedure: Preoperative diagnosis: Severe calf pain, post ischemia, likely compartment syndrome Postoperative diagnosis: Same Procedure: 4 compartment fasciotomy Surgeon: Aurea Crowell D.O. EBL: 20 cc IV fluids: See records Urine output: Not measured Drains: None Complications: None immediately apparent Condition: Stable to recovery Operative indication and findings: Patient is a 63-year-old male who previously underwent tPA thrombolysis of his left lower extremity due to evidence of pop liteal artery occlusion and pain. He was taken back today for repeat imaging which showed some improvement of collateralized flow still with evidence of arterial occlusion through the popliteal artery. He had improved clinical findings with improvement of signal at the DP and PT with improved motion of his foot. Due to this the angiographic procedure was concluded and the decision was made to go forward with a fasciotomy. Patient was transferred to the operating room placed in supine position. Left lower extremities prepped and draped in usual sterile fashion. Starting with the lateral incision, a vertical incision was made at the intermuscular groove and carried down through the subcutaneous tissues to the fascia. A standard H incision was made to allow for opening both the anterior and lateral compartments. There was mild bulging of the musculature. Attention was then turned towards the medial portion incision was made at the posterior tibial border carried out through the subcutaneous tissue. The superficial posterior compartment was opened and dissection bluntly was carried down through the area to the deep fascial compartment. There was modest bulging of the superficial posterior compartment. All musculature appeared viable. Wet-to-dry dressings were placed. The patient was transported to recovery in stable condition having tolerated the procedure well. Attempts were made to call son and nephew without any response
[2023-11-08] MEDS: HEPARIN SOD,PORK IN 0.45% NACL 25,000 UNIT in 0.45% NACL 1 250ML.BAG IV SCH (15:21)
[2023-11-08 21:31] LABS: Basophils % (A) 0 %; Eosinophils # (A) 0.1 k/uL (0-0.7); Eosinophils % (A) 1 %; Lymphocytes # (A) 0.7 k/uL (1.0-4.8); Lymphocytes % (A) 8 %; MCHC 32.3 g/dL (31.0-37.0); Mean Platelet Volume 8.3; Monocytes # (A) 0.6 k/uL (0-1.0); Monocytes % (A) 7 %; Neutrophils # (A) 7.4 k/uL (1.3-7.7); Neutrophils % (A) 84 %; Platelet Count 145 k/uL (150-450); RBC 3.74 m/uL (4.30-5.90); RDW 13.5 % (11.5-15.5); WBC 8.9 k/uL (3.8-10.6)
[2023-11-08] MEDS: HEPARIN SODIUM 1,000 UN/ML (10ML VL) IV PRN (23:52)
[2023-11-09 06:18] LABS: Basophils % (A) 1 %; Eosinophils # (A) 0.1 k/uL (0-0.7); Eosinophils % (A) 1 %; HCT 30.8 % (39.0-53.0); HGB 10.4 gm/dL (13.0-17.5); Lymphocytes # (A) 1.3 k/uL (1.0-4.8); Lymphocytes % (A) 17 %; MCH 33.5 pg (25.0-35.0); MCHC 33.8 g/dL (31.0-37.0); MCV 98.9 fL (80.0-100.0); Mean Platelet Volume 8.9; Monocytes # (A) 0.8 k/uL (0-1.0); Monocytes % (A) 10 %; Neutrophils # (A) 5.5 k/uL (1.3-7.7); Neutrophils % (A) 70 %; Platelet Count 134 k/uL (150-450); RBC 3.12 m/uL (4.30-5.90); RDW 13.8 % (11.5-15.5)
[2023-11-09] MEDS ORDERED: HYDROmorphone 0.5 MG/0.5 ML SYRINGE IVP PRN (07:00)
--- NOTE | 2023-11-09 12:24 | P.PN ---
Subjective Progress Note Date: 11/09/23 63 year old M with PMH of PPD smoking presents to the ED after being directed by his vascular surgeon for popliteal artery occlusion. He reports cramping in his left calf that started on 11/03 that was relentless. His foot felt hard and progressively got swollen throughout the day. He was seen in the ED on 11/03 where venous doppler was performed. Venous doppler 11/03 shows occlusion of the arterial vasculature. He was discharged from the ED at that time and given an appointment with vascular surgery. He reports smoking 1 PPD. He denies any other medical issues. Denies chest pain, SOB, palpitations, dizziness. In the ED he underwent extensive evaluation. BP 149/83, HR 62, T 98.1, RR 18, 98% on RA. CBC, Coag panel, CMP performed significant for neutrophils 8.1, bicarb 31, glu 103, AST 79. Lactic acid 1.4. Venous doppler 11/03 shows occlusion of the arterial vasculature. Patient started on Heparin drip. He underwent US guided right common femoral artery access, selective left lower extremity angiogram to distal superficial femoral artery, right iliofemoral angiogram and placement of thrombolysis catheter with Dr. Crowell on 11/06. Alteplase infusion was started via tPA catheter. He was taken back to the OR on 11/07 for LLE angiogram which showed minimal improvement of the flow through the main vessel. Due to clinical improvement, catheters and wires were removed. Noted to have significant calf pain with tenderness, fasciotomy was performed for concerns for compartment syndrome. 11/08 Patient was seen and examined. No complaints. Well controlled pain. CBC Hg 10.4 Hct 30.8. APTT 74.5. Lipid panel T. Chol 142, LDL 81.6, HDL 38. He is continued on Heparin drip running at 20 units/kg/hr. General: no distress, appears at stated age Derm: warm, dry Head: atraumatic, normocephalic, symmetric Eyes: EOMI, no lid lag, anicteric sclera Mouth: no lip lesion, mucus membranes moist Cardiovascular: S1S2 reg, no murmur, 1+ DP pulse LLE dressing c/d/i Lungs: CTA bilateral, no rhonchi, no rales , no accessory muscle use Ext: no gross muscle atrophy, no edema, no contractures Neuro: no focal neuro deficits Psych: Alert, oriented, appropriate affect Based on my assessment of this patient, this patient meets a high complexity level of care. #Acute left lower extremity ischemia: Status post tPA catheter and infusion of alteplase 11/07 and LLE angiogram with minimal improvement on 11/07. Continue heparin infusion. Morphine 4 mg IV Q2H PRN for pain. Vascular surgery on board. #Left popliteal artery occlusion #Left lower extremity compartment syndrome: Status post fasciotomy 11/07 #Transaminitis: A1c as above. Lipid panel as above. #Normocytic anemia: Hg wnl on admission. No signs of active bleeding. Likely dilutional. #Thrombocytopenia: Plt wnl on admission. Likely dilutional. Monitor while on heparin infusion. #Smoker: Advised to quit. Nicotine patch 14 mg/24H patch daily. CODE STATUS: FULL CODE DVT Prophylaxis: Heparin drip. GI Prophylaxis: Designated medical POA if patient is not able to make medical decisions for themselves: I have reviewed the following information resource consultant notes: Vascular, OR note. I have reviewed the results of the following tests: CBC, Coag panel, Lipid panel I have ordered the following tests: Monitor coag while on heparin drip. CBC ordered for tomorrow morning. I have discussed the care of this patient with the following independent historian: RN. I have independently interpreted the following test below: I have discussed the management of this patient with the following physician: Objective - Vital Signs Vital signs: Vital Signs Temp 98.5 F 11/09/23 04:00 Pulse 48 L 11/09/23 07:00 Resp 16 11/09/23 07:00 BP 106/57 11/09/23 07:00 Pulse Ox 92 L 11/09/23 07:00 FiO2 Intake & Output 11/08/23 11/09/23 11/09/23 18:59 06:59 18:59 Intake Total 2190 2172.634 130 Output Total 315 900 0 Balance 1875 1272.634 130 Weight 62.7 kg Intake: IV 1690 1560 130 Sodium Chloride 0.9% 1, 1040 1560 130 000 ml @ 130 mls/hr IV . Q7H42M [facility] Rx#:[id number] Intake, IV Titration 112.634 Amount Heparin Sod,Pork in 0.45% 112.634 NaCl 25,000 unit In 0.45 % NaCl 1 250ml.bag @ 18 UNITS/KG/HR 10.512 mls/hr IV .[id number] [facility] Rx#: [id number] Oral 500 500 Output: Urine 300 900 0 Estimated Blood Loss 15 Other: Voiding Method Urinal Urinal # Bowel Movements 0 - Labs CBC & Chem 7: 11/09/23 05:47 11/07/23 09:56 Labs: Abnormal Lab Results - Last 24 Hours (Table) 11/08/23 11/08/23 11/08/23 Range/Units 04:03 21:16 21:16 RBC 3.74 L (4.30-5.90) m/uL Hgb 12.0 L (13.0-17.5) gm/dL Hct 37.0 L (39.0-53.0) % Plt Count 145 L (150-450) k/uL Lymphocytes # 0.7 L (1.0-4.8) k/uL APTT 42.8 H (22.0-30.0) sec HDL Cholesterol 38.00 L (40.00-60.00) mg/dL 11/09/23 11/09/23 Range/Units 05:47 05:47 RBC 3.12 L (4.30-5.90) m/uL Hgb 10.4 L (13.0-17.5) gm/dL Hct 30.8 L (39.0-53.0) % Plt Count 134 L (150-450) k/uL Lymphocytes # (1.0-4.8) k/uL APTT 74.5 H (22.0-30.0) sec HDL Cholesterol (40.00-60.00) mg/dL
[2023-11-09] MEDS: BENZOCAINE/MENTHOL LOZENG 1 EACH LOZENGE MUCOUS MEM PRN (12:35)
--- NOTE | 2023-11-10 01:04 | P.PN ---
Subjective Progress Note Date: 11/09/23 Patient seen and examined. Complaining of pain in calf since surgery with dorsiflexion. Objective - Vital Signs Vital signs: Vital Signs Temp 99 F 11/09/23 20:00 Pulse 61 11/09/23 20:00 Resp 18 11/09/23 20:00 BP 145/83 11/09/23 20:00 Pulse Ox 98 11/09/23 20:00 FiO2 Intake & Output 11/09/23 11/09/23 11/10/23 06:59 18:59 06:59 Intake Total 2172.634 1560 770 Output Total 900 1625 550 Balance 1272.634 -65 220 Weight 62.7 kg Intake: IV 1560 1560 520 Sodium Chloride 0.9% 1, 1560 1560 520 000 ml @ 130 mls/hr IV . Q7H42M [facility] Rx#:[id number] Intake, IV Titration 112.634 250 Amount Heparin Sod,Pork in 0.45% 112.634 250 NaCl 25,000 unit In 0.45 % NaCl 1 250ml.bag @ 18 UNITS/KG/HR 10.512 mls/hr IV .[id number] [facility] Rx#: [id number] Oral 500 Output: Urine 900 1625 550 Other: Voiding Method Urinal Urinal Urinal # Voids 1 # Bowel Movements 0 - Exam left lower leg fasciotomy site is clean. Good healthy appearing muscle Doppler signal noted at DP - Labs CBC & Chem 7: 11/09/23 05:47 11/07/23 09:56 Labs: Abnormal Lab Results - Last 24 Hours (Table) 11/09/23 11/09/23 Range/Units 05:47 05:47 RBC 3.12 L (4.30-5.90) m/uL Hgb 10.4 L (13.0-17.5) gm/dL Hct 30.8 L (39.0-53.0) % Plt Count 134 L (150-450) k/uL APTT 74.5 H (22.0-30.0) sec Assessment and Plan Assessment: Acute left lower extremity critical limb ischemia Left popliteal artery occlusion S/P left lower extremity thrombolysis and fasciotmy Plan: Dressings changed today Continue local wound care per nursing Increase activity, ok to ambulate Continue anticoagulation
--- NOTE | 2023-11-10 13:46 | P.PN ---
Subjective Progress Note Date: 11/10/23 Principal diagnosis: PVD Mr. Reyes was seen and examined. Pain is improving. No chest pain or shortness of breath. Plan of care discussed with them. States he has been ambulating. Objective - Vital Signs Vital signs: Vital Signs Temp 98.8 F 11/10/23 08:00 Pulse 69 11/10/23 08:00 Resp 18 11/10/23 08:00 BP 131/67 11/10/23 08:00 Pulse Ox 97 11/10/23 08:00 FiO2 Intake & Output 11/09/23 11/10/23 11/10/23 18:59 06:59 18:59 Intake Total 1560 1680 520 Output Total 1625 1900 Balance -65 -220 520 Weight 61.4 kg Intake: IV 1560 1430 520 Sodium Chloride 0.9% 1, 1560 1430 520 000 ml @ 130 mls/hr IV . Q7H42M [facility] Rx#:[id number] Intake, IV Titration 250 Amount Heparin Sod,Pork in 0.45% 250 NaCl 25,000 unit In 0.45 % NaCl 1 250ml.bag @ 18 UNITS/KG/HR 10.512 mls/hr IV .[id number] [facility] Rx#: [id number] Output: Urine 1625 1900 Other: Voiding Method Urinal Urinal Urinal # Voids 1 1 - Exam Vitals: Reviewed General: No acute distress Cardiovascular: RRR, S1-S2 Lungs: Breath sounds equal and clear to auscultation bilaterally. No wheezing, rhonchi or rales Extremities: No lower extremity edema - Labs CBC & Chem 7: 11/09/23 05:47 11/07/23 09:56 Labs: Abnormal Lab Results - Last 24 Hours (Table) 11/10/23 Range/Units 05:04 APTT 49.1 H (22.0-30.0) sec Assessment and Plan Plan: Assessment and plan 1. Acute left lower extremity limb ischemia secondary to left popliteal artery occlusion Status post left lower extremity thrombolysis. Heparin drip. Antiplatelets. Management per vascular. 2. Left lower extremity compartment syndrome Status post fasciotomy 3. Thrombocytopenia CBC next a.m. 4. Nicotine dependence Counseled on cessation 11/09
[2023-11-11 06:59] LABS: Basophils % (A) 1 %; Eosinophils # (A) 0.2 k/uL (0-0.7); Eosinophils % (A) 4 %; HCT 28.7 % (39.0-53.0); HGB 9.5 gm/dL (13.0-17.5); Lymphocytes % (A) 15 %; MCH 32.6 pg (25.0-35.0); MCV 98.7 fL (80.0-100.0); Mean Platelet Volume 8.4; Monocytes # (A) 0.5 k/uL (0-1.0); Monocytes % (A) 8 %; Neutrophils # (A) 4.7 k/uL (1.3-7.7); Neutrophils % (A) 71 %; Platelet Count 170 k/uL (150-450); RBC 2.91 m/uL (4.30-5.90); RDW 13.4 % (11.5-15.5); WBC 6.6 k/uL (3.8-10.6)
--- NOTE | 2023-11-11 10:34 | P.PN ---
Subjective Progress Note Date: 11/11/23 Principal diagnosis: PVD Mr. Reyes was seen and examined. Clinically unchanged from yesterday. Pain slightly increased today. Ambulating okay. No chest pain or shortness of breath. Objective - Vital Signs Vital signs: Vital Signs Temp 97.9 F 11/11/23 02:00 Pulse 103 H 11/11/23 08:00 Resp 16 11/11/23 08:00 BP 135/80 11/11/23 08:00 Pulse Ox 98 11/11/23 08:00 FiO2 Intake & Output 11/10/23 11/11/23 11/11/23 18:59 06:59 18:59 Intake Total 1560 1810 130 Output Total 500 1425 Balance 1060 385 130 Intake: IV 1560 1560 130 Sodium Chloride 0.9% 1, 1560 1560 130 000 ml @ 130 mls/hr IV . Q7H42M [facility] Rx#:[id number] Intake, IV Titration 250 Amount Heparin Sod,Pork in 0.45% 250 NaCl 25,000 unit In 0.45 % NaCl 1 250ml.bag @ 18 UNITS/KG/HR 10.512 mls/hr IV .[id number] [facility] Rx#: [id number] Output: Urine 500 1425 Other: Voiding Method Urinal Urinal # Voids 1 - Exam Vitals: Reviewed General: No acute distress Cardiovascular: RRR, S1-S2 Lungs: Breath sounds equal and clear to auscultation bilaterally. No wheezing, rhonchi or rales Extremities: No lower extremity edema - Labs CBC & Chem 7: 11/11/23 06:16 11/07/23 09:56 Labs: Abnormal Lab Results - Last 24 Hours (Table) 11/11/23 Range/Units 06:16 RBC 2.91 L (4.30-5.90) m/uL Hgb 9.5 L (13.0-17.5) gm/dL Hct 28.7 L (39.0-53.0) % Assessment and Plan Plan: Assessment and plan 1. Acute left lower extremity limb ischemia secondary to left popliteal artery occlusion Status post left lower extremity thrombolysis. Heparin drip. Antiplatelets. Management per vascular. 2. Left lower extremity compartment syndrome Status post fasciotomy 3. Thrombocytopenia, resolved CBC next a.m. 4. Nicotine dependence Counseled on cessation 11/09 5. Anemia Likely secondary to blood loss from surgery. Denies any overt bleeding. Follow-up CBC next a.m.
--- NOTE | 2023-11-11 13:04 | P.PN ---
Subjective Progress Note Date: 11/11/23 Principal diagnosis: Left popliteal artery occlusion Patient is seen and examined today in the ICU. He is up in the bedside chair. He he is MedSurg overflow. He is postop day #3 for tPA thrombolysis and four compartment fasciotomy. States he does have surgical pain however pain that he was experiencing prior to surgery has improved. He states that he had significant amount of bleeding after he got up and walked to the bathroom yesterday. This has stabilized. Hemoglobin 9.5, heparin is currently paused as patient was up getting cleaned up. He is afebrile. Objective - Vital Signs Vital signs: Vital Signs Temp 97.9 F 11/11/23 02:00 Pulse 66 11/11/23 02:00 Resp 15 11/11/23 02:00 BP 133/80 11/11/23 02:00 Pulse Ox 95 11/11/23 02:00 FiO2 Intake & Output 11/10/23 11/11/23 11/11/23 18:59 06:59 18:59 Intake Total 1560 1810 130 Output Total 500 1425 Balance 1060 385 130 Intake: IV 1560 1560 130 Sodium Chloride 0.9% 1, 1560 1560 130 000 ml @ 130 mls/hr IV . Q7H42M [facility] Rx#:[id number] Intake, IV Titration 250 Amount Heparin Sod,Pork in 0.45% 250 NaCl 25,000 unit In 0.45 % NaCl 1 250ml.bag @ 18 UNITS/KG/HR 10.512 mls/hr IV .[id number] [facility] Rx#: [id number] Output: Urine 500 1425 Other: Voiding Method Urinal Urinal # Voids 1 - Exam General appearance: The patient is alert, oriented, appears in no acute dis tress. HET: Head is normocephalic and atraumatic. Neck: Supple. Abdomen: Soft, nondistended. Extremities: Normal skin color and turgor. Left lower extremity PT and DP Doppler signal present. Fasciotomy site medial aspect with some swelling, good healthy muscle. Lateral aspect with bleeding, appears mostly old blood likely secondary to hematoma. Neurological: No focal deficits. - Labs CBC & Chem 7: 11/11/23 06:16 11/07/23 09:56 Labs: Abnormal Lab Results - Last 24 Hours (Table) 11/11/23 Range/Units 06:16 RBC 2.91 L (4.30-5.90) m/uL Hgb 9.5 L (13.0-17.5) gm/dL Hct 28.7 L (39.0-53.0) % Assessment and Plan Assessment: 1. Acute left lower extremity critical limb ischemia 2. Left popliteal artery occlusion 3. Status post left lower extremity thrombolysis and fasciotomy 4. Current smoker Plan: 1. Continue heparin drip, stop 4 hours prior to surgery 11/12/23 0330 2. Daily CBC, BMP 3. Dressing changed 4. N.p.o. after midnight 5. Plan for left lower extremity fasciotomy washout and closure tomorrow Thank you for this consultation, we will continue to follow. The impression and plan of care has been dictated as directed. Dr. Mariee I performed a history and examination of this patient, discussed the same with the dictator. I agree with the dictator's note ,documented as a scribe. Any additional findings or plans will be noted.
[2023-11-11] MEDS: oxyCODONE-APAP 5-325MG 1 EACH TAB PO PRN (17:43)
[2023-11-12] MEDS ORDERED: LIDOCAINE 1% (10MG/ML) FOR IV START INTRADERMA PRN (00:52)
[2023-11-12 04:03] LABS: HCT 26.6 % (39.0-53.0); HGB 8.9 gm/dL (13.0-17.5); MCH 32.8 pg (25.0-35.0); MCHC 33.2 g/dL (31.0-37.0); MCV 98.6 fL (80.0-100.0); Mean Platelet Volume 8.5; Platelet Count 187 k/uL (150-450); RDW 13.3 % (11.5-15.5); WBC 7.9 k/uL (3.8-10.6)
[2023-11-12 04:55] LABS: African American GFR (CKD) >90 (>60 ml/min/1.73 sqM); Anion Gap 4 mmol/L; Blood Urea Nitrogen 7 mg/dL (9-20); Calcium 8.6 mg/dL (8.4-10.2); Carbon Dioxide 27 mmol/L (22-30); Chloride 101 mmol/L (98-107); Glucose 94 mg/dL (74-99); Non-African American GFR(CKD) >90 (>60 ml/min/1.73 sqM); Potassium 3.8 mmol/L (3.5-5.1); Sodium 132 mmol/L (137-145)
[2023-11-12] MEDS ORDERED: MIDAZOLAM 2 MG/2 ML VIAL IV PRN (07:00)
[2023-11-12] MEDS ORDERED: HYDROmorphone 0.5 MG/0.5 ML SYRINGE IVP PRN (07:00)
[2023-11-12] MEDS ORDERED: fentaNYL (PF) 50 MCG/ML 2 ML AMP IVP PRN (07:00)
[2023-11-12] MEDS: ONDANSETRON 4 MG/2 ML VIAL IVP ONE (07:08)
[2023-11-12] MEDS: IV FLUID CONTINUATION 1,000 ML IV ONE (07:16)
[2023-11-12] MEDS ORDERED: PROPOFOL 10 MG/ML 20 ML VIAL IV ONE (07:17)
[2023-11-12] MEDS ORDERED: LIDOCAINE 1% INJ 10MG/ML (20 ML MDV) ONE (07:17)
[2023-11-12] MEDS ORDERED: fentaNYL (PF) 50 MCG/ML 2 ML AMP ONE (07:17)
[2023-11-12] MEDS ORDERED: ePHEDrine 50 MG/ML 1 ML VIAL ONE (07:17)
[2023-11-12] MEDS ORDERED: ceFAZolin 1 GM/50 ML BAG (PMX) ONE (07:17)
[2023-11-12] MEDS ORDERED: MIDAZOLAM 2 MG/2 ML VIAL ONE (07:17)
[2023-11-12] MEDS: LACTATED RINGERS 1,000 ML IV ONE (07:50)
--- NOTE | 2023-11-12 08:21 | P.OP ---
Date of Procedure: 11/12/23 Description of Procedure: Preoperative diagnosis: Left lower extremity ischemia, status post fasciotomy Postoperative diagnosis: Same Procedure: Left lower extremity incisional washout and partial complex multilayer closure fasciotomy Surgeon: Aurea Crowell D.O. EBMing 20 cc IV fluids: See records Urine output: Not measured Drains none Complications none immediately apparent Condition stable to recovery Operative indication and details: Patient is a 63-year-old male who previously had evidence of limb ischemia who underwent tPA with some improvement. He is continue to have motor or sensory intact of his foot with pain in his calf after the procedure he had undergone a fasciotomy and had some worsened bit of swelling through the muscle. He presents today for potential washout and closure. Patient was taken to the operative suite and placed in supine position. The left lower extremity was prepped and draped in usual sterile fashion. A preprocedural timeout was performed, all parties were in agreement. The area was digitally investigated and there was some return of old blood hematoma. The re is no significant active bleeding noted. The area was washed out utilizing saline as well as hydrogen peroxide. After copious irrigation, the edges of the wound were reapproximated at the apices with 3-0 Vicryl and naveen on both medial lateral segments leaving the medial portion open allow for continued decrease in edema. Dressings were placed. The patient is transferred to recovery in stable condition having tolerated the procedure well. 42 point male
[2023-11-12] MEDS: LACTATED RINGERS 1,000 ML IV SCH (09:10)
[2023-11-12] MEDS: DEXAMETHASONE SOD PHOSPHATE 4 MG/ML 1 ML VIAL IV ONE (09:10)
--- NOTE | 2023-11-12 11:40 | P.PN ---
Subjective Progress Note Date: 11/12/23 Principal diagnosis: PVD Mr. Reyes was seen and examined. He had a washout and closure done this morning. No chest pain or shortness of breath. Pain is controlled. Blood pressure stable. Objective - Vital Signs Vital signs: Vital Signs Temp 97.5 F L 11/12/23 08:12 Pulse 78 11/12/23 11:06 Resp 18 11/12/23 09:05 BP 116/61 11/12/23 11:06 Pulse Ox 95 11/12/23 11:06 FiO2 Intake & Output 11/11/23 11/12/23 11/12/23 18:59 06:59 18:59 Intake Total 474.912 103.182 350 Output Total 400 470 Balance 474.912 -296.818 -120 Weight 61.9 kg Intake: IV 260 350 Sodium Chloride 0.9% 1, 260 000 ml @ 130 mls/hr IV . Q7H42M [facility] Rx#:[id number] Intake, IV Titration 214.912 103.182 0 Amount Heparin Sod,Pork in 0.45% 214.912 103.182 0 NaCl 25,000 unit In 0.45 % NaCl 1 250ml.bag @ 18 UNITS/KG/HR 10.512 mls/hr IV .[id number] [facility] Rx#: [id number] Output: Urine 400 450 Estimated Blood Loss 20 Other: Voiding Method Urinal Urinal # Bowel Movements 0 0 - Exam Vitals: Reviewed General: No acute distress Cardiovascular: RRR, S1-S2 Lungs: Breath sounds equal and clear to auscultation bilaterally. No wheezing, rhonchi or rales Extremities: No lower extremity edema - Labs CBC & Chem 7: 11/12/23 03:39 11/12/23 03:39 Labs: Abnormal Lab Results - Last 24 Hours (Table) 11/11/23 11/11/23 11/12/23 Range/Units 16:31 22:42 03:39 RBC 2.70 L (4.30-5.90) m/uL Hgb 8.9 L (13.0-17.5) gm/dL Hct 26.6 L (39.0-53.0) % APTT 37.7 H 59.5 H (22.0-30.0) sec Sodium (137-145) mmol/L BUN (9-20) mg/dL Creatinine (0.66-1.25) mg/dL 11/12/23 11/12/23 Range/Units 03:39 03:39 RBC (4.30-5.90) m/uL Hgb (13.0-17.5) gm/dL Hct (39.0-53.0) % APTT 61.1 H (22.0-30.0) sec Sodium 132 L (137-145) mmol/L BUN 7 L (9-20) mg/dL Creatinine 0.53 L (0.66-1.25) mg/dL Assessment and Plan Plan: Assessment and plan 1. Acute left lower extremity limb ischemia secondary to left popliteal artery occlusion Status post left lower extremity thrombolysis. Heparin drip. Management per vascular. 2. Left lower extremity compartment syndrome Status post fasciotomy. Washout and closure was performed on 11/11. 3. Thrombocytopenia, resolved CBC next a.m. 4. Nicotine dependence Counseled on cessation 11/09 5. Anemia Likely secondary to blood loss from surgery. Denies any overt bleeding. Follow-up CBC next a.m.
[2023-11-12] MEDS: DOCUSATE 100 MG CAP PO SCH (12:58)
[2023-11-12] MEDS: polyethylene glycoL 3350 17 GM POWD.PACK PO SCH (12:58)
[2023-11-12 13:12] LABS: HCT 26.5 % (39.0-53.0); HGB 8.9 gm/dL (13.0-17.5); MCHC 33.4 g/dL (31.0-37.0); Mean Platelet Volume 9.6; Platelet Count 200 k/uL (150-450); RBC 2.68 m/uL (4.30-5.90); RDW 13.3 % (11.5-15.5); WBC 7.9 k/uL (3.8-10.6)
--- NOTE | 2023-11-13 07:26 | P.PN ---
Subjective Progress Note Date: 11/13/23 Principal diagnosis: PVD Mr. Pittman was seen and examined. No acute complaints. Pain controlled. BP stable. Awaiting today's labs. Objective - Vital Signs Vital signs: Vital Signs Temp 98.6 F 11/13/23 01:39 Pulse 71 11/13/23 01:39 Resp 16 11/13/23 01:39 BP 116/66 11/13/23 01:39 Pulse Ox 93 L 11/13/23 01:39 FiO2 Intake & Output 11/12/23 11/13/23 11/13/23 18:59 06:59 18:59 Intake Total 482.441 145.533 Output Total 1370 3250 Balance -887.559 -3104.467 Weight 56.3 kg Intake: IV 400 Intake, IV Titration 82.441 145.533 Amount Heparin Sod,Pork in 0.45% 82.441 145.533 NaCl 25,000 unit In 0.45 % NaCl 1 250ml.bag @ 18 UNITS/KG/HR 10.512 mls/hr IV .[id number] [facility] Rx#: [id number] Output: Urine 1350 3250 Estimated Blood Loss 20 Other: Voiding Method Urinal # Voids 2 # Bowel Movements 0 - Exam Vitals: Reviewed General: No acute distress Cardiovascular: RRR, S1-S2 Lungs: Breath sounds equal and clear to auscultation bilaterally. No wheezing, rhonchi or rales Extremities: No lower extremity edema - Labs CBC & Chem 7: 11/12/23 12:32 11/12/23 03:39 Labs: Abnormal Lab Results - Last 24 Hours (Table) 11/12/23 11/12/23 11/13/23 Range/Units 12:32 15:07 00:22 RBC 2.68 L (4.30-5.90) m/uL Hgb 8.9 L (13.0-17.5) gm/dL Hct 26.5 L (39.0-53.0) % APTT 42.1 H 77.3 H (22.0-30.0) sec Assessment and Plan Plan: Assessment and plan 1. Acute left lower extremity limb ischemia secondary to left popliteal artery occlusion Status post left lower extremity thrombolysis. Heparin drip. Management per vascular. 2. Left lower extremity compartment syndrome Status post fasciotomy. Washout and closure was performed on 6/25. 3. Thrombocytopenia, resolved CBC next a.m.Awaiting today's cbc. 4. Nicotine dependence Counseled on cessation 11/09 5. Anemia Likely secondary to blood loss from surgery. Denies any overt bleeding. Follow-up CBC next a.m.Awaiting today's cbc.
[2023-11-13] MEDS: APIXABAN 5 MG TAB PO SCH (09:25)
[2023-11-13 10:32] LABS: Basophils # (A) 0.06 X 10*3/uL (0.00-0.10); Basophils % (A) 0.8 %; Eosinophils # (A) 0.26 X 10*3/uL (0.04-0.35); Eosinophils % (A) 3.4 %; HCT 23.8 % (39.6-50.0); HGB 7.9 g/dL (13.0-17.0); Lymphocytes # (A) 0.92 X 10*3/uL (0.90-5.00); Lymphocytes % (A) 12.2 %; MCH 32.2 pg (27.0-32.0); MCHC 33.2 g/dL (32.0-37.0); MCV 97.1 FL (80.0-97.0); Mean Platelet Volume 11.5 FL (9.5-12.2); Monocytes # (A) 1.21 X 10*3/uL (0.20-1.00); NRBC Per 100 WBC 0 X 10*3/uL (0.00-0.01); Neutrophils # (A) 5.06 X 10*3/uL (1.80-7.70); Neutrophils % (A) 67.2 %; Platelet Count 213 X 10*3/uL (140-440); RBC 2.45 X 10*6/uL (4.40-5.60); RDW 13.9 % (11.5-14.5); WBC 7.54 X 10*3/uL (4.50-10.00)
--- NOTE | 2023-11-13 10:49 | P.PN ---
Subjective Progress Note Date: 11/13/23 Principal diagnosis: Left popliteal artery occlusion Patient seen and examined today as a follow-up. Yesterday he underwent left lower extremity incision washout and partial closure of fasciotomy. States he has pain in his calf around surgical site. Worse if he is laying down for long periods but improves with getting up and ambulating. He has been afebrile. Repeat hemoglobin today 7.9 down from 8.9. But no further active bleeding. Objective - Vital Signs Vital signs: Vital Signs Temp 98.5 F 11/13/23 07:20 Pulse 70 11/13/23 07:20 Resp 18 11/13/23 07:20 BP 122/80 11/13/23 07:20 Pulse Ox 94 L 11/13/23 07:20 FiO2 Intake & Output 11/12/23 11/13/23 11/13/23 18:59 06:59 18:59 Intake Total 482.441 145.533 Output Total 1370 3250 Balance -887.559 -3104.467 Weight 56.3 kg Intake: IV 400 Intake, IV Titration 82.441 145.533 Amount Heparin Sod,Pork in 0.45% 82.441 145.533 NaCl 25,000 unit In 0.45 % NaCl 1 250ml.bag @ 18 UNITS/KG/HR 10.512 mls/hr IV .[id number] [facility] Rx#: [id number] Output: Urine 1350 3250 Estimated Blood Loss 20 Other: Voiding Method Urinal # Voids 2 # Bowel Movements 0 - Exam General appearance: The patient is alert, oriented, appears in no acute distress. HET: Head is normocephalic and atraumatic. Neck: Supple. Abdomen: Soft, nondistended. Extremities: Normal skin color and turgor. Left lower extremity PT and DP Doppler signal present. Fasciotomy site medial aspect swelling improved, edges well-approximated with naveen with medial portion open and healthy appearing muscle, no active bleeding. Lateral aspect with edges well-approximated with naveen medial portion open and healthy appearing muscle, no active bleeding. Right medial thigh with ecchymosis, no hematoma. Right groin with palpable femoral pulse and closure device. No hematoma or active bleeding. Neurological: No focal deficits. - Labs CBC & Chem 7: 11/13/23 06:38 11/12/23 03:39 Labs: Abnormal Lab Results - Last 24 Hours (Table) 11/12/23 11/12/23 11/13/23 Range/Units 12:32 15:07 00:22 RBC 2.68 L (4.30-5.90) m/uL Hgb 8.9 L (13.0-17.5) gm/dL Hct 26.5 L (39.0-53.0) % APTT 42.1 H 77.3 H (22.0-30.0) sec 11/13/23 Range/Units 06:38 RBC (4.30-5.90) m/uL Hgb (13.0-17.5) gm/dL Hct (39.0-53.0) % APTT 88.1 H (22.0-30.0) sec Assessment and Plan Assessment: 1. Acute left lower extremity critical limb ischemia 2. Left popliteal artery occlusion status post thrombolysis 3. Left lower extremity compartment syndrome status post fasciotomy 4. Current smoker Plan: 1. Discontinue heparin, transition to Eliquis 5 mg twice daily 2. Daily CBC, BMP 3. Dressing changed 4. Recommend smoking cessation. Patient currently on nicotine patch. 5. Plan for left lower extremity fasciotomy closure 11/15/2023 Thank you for this consultation, we will continue to follow. The impression and plan of care has been dictated as directed. Dr. Crowell I performed a history and examination of this patient, discussed the same with the dictator. I agree with the dictator's note ,documented as a scribe. Any a dditional findings or plans will be noted.
--- NOTE | 2023-11-13 13:10 | P.PN ---
Subjective Progress Note Date: 11/13/23 Principal diagnosis: PVD Mr. Pittman was seen and examined. Pain is controlled. No chest pain or shortness of breath. No active complaints. Objective - Vital Signs Vital signs: Vital Signs Temp 98.9 F 11/13/23 13:04 Pulse 64 11/13/23 13:04 Resp 17 11/13/23 13:04 BP 114/74 11/13/23 13:04 Pulse Ox 96 11/13/23 13:04 FiO2 Intake & Output 11/12/23 11/13/23 11/13/23 18:59 06:59 18:59 Intake Total 482.441 145.533 Output Total 1370 3250 Balance -887.559 -3104.467 Weight 56.3 kg Intake: IV 400 Intake, IV Titration 82.441 145.533 Amount Heparin Sod,Pork in 0.45% 82.441 145.533 NaCl 25,000 unit In 0.45 % NaCl 1 250ml.bag @ 18 UNITS/KG/HR 10.512 mls/hr IV .[id number] [facility] Rx#: [id number] Output: Urine 1350 3250 Estimated Blood Loss 20 Other: Voiding Method Urinal # Voids 2 # Bowel Movements 0 - Exam Vitals: Reviewed General: No acute distress Cardiovascular: RRR, S1-S2 Lungs: Breath sounds equal and clear to auscultation bilaterally. No wheezing, rhonchi or rales Extremities: No lower extremity edema - Labs CBC & Chem 7: 11/13/23 06:38 11/12/23 03:39 Labs: Abnormal Lab Results - Last 24 Hours (Table) 11/12/23 11/12/23 11/13/23 Range/Units 12:32 15:07 00:22 RBC 2.68 L (4.30-5.90) m/uL Hgb 8.9 L (13.0-17.5) gm/dL Hct 26.5 L (39.0-53.0) % MCV (80.0-97.0) FL MCH (27.0-32.0) pg Monocytes # (0.20-1.00) X 10*3/uL APTT 42.1 H 77.3 H (22.0-30.0) sec 06/26/24 06/26/24 Range/Units 06:38 06:38 RBC 2.45 L (4.30-5.90) m/uL Hgb 7.9 L (13.0-17.5) gm/dL Hct 23.8 L (39.0-53.0) % MCV 97.1 H (80.0-97.0) FL MCH 32.2 H (27.0-32.0) pg Monocytes # 1.21 H (0.20-1.00) X 10*3/uL APTT 88.1 H (22.0-30.0) sec Assessment and Plan Plan: Assessment and plan 1. Acute left lower extremity limb ischemia secondary to left popliteal artery occlusion Status post left lower extremity thrombolysis. Management per vascular. He was started on Eliquis per vascular. 2. Left lower extremity compartment syndrome Status post fasciotomy. Washout and closure was performed on 11/11. Left lower extremity fasciotomy closure planned for 11/14. 3. Thrombocytopenia, resolved CBC next a.m. 4. Nicotine dependence Counseled on cessation 11/09 5. Anemia Likely secondary to blood loss from surgery. Denies any overt bleeding. Follow-up CBC next a.m. hemoglobin slowly dropping. Risks and benefits of anticoagulation at discretion of vascular surgery.
[2023-11-13] MEDS: LACTULOSE 20 GM/30 ML CUP PO ONE (18:50)
[2023-11-14 10:32] LABS: Basophils # (A) 0.04 X 10*3/uL (0.00-0.10); Basophils % (A) 0.5 %; Eosinophils # (A) 0.34 X 10*3/uL (0.04-0.35); Eosinophils % (A) 4.5 %; HGB 8.1 g/dL (13.0-17.0); Lymphocytes # (A) 1.14 X 10*3/uL (0.90-5.00); Lymphocytes % (A) 15.1 %; MCH 32.3 pg (27.0-32.0); MCHC 32.4 g/dL (32.0-37.0); MCV 99.6 FL (80.0-97.0); Mean Platelet Volume 11.1 FL (9.5-12.2); Monocytes # (A) 1.09 X 10*3/uL (0.20-1.00); Monocytes % (A) 14.4 %; NRBC Per 100 WBC 0 X 10*3/uL (0.00-0.01); Neutrophils # (A) 4.91 X 10*3/uL (1.80-7.70); Neutrophils % (A) 65.1 %; Platelet Count 260 X 10*3/uL (140-440); RBC 2.51 X 10*6/uL (4.40-5.60); RDW 14.3 % (11.5-14.5); WBC 7.55 X 10*3/uL (4.50-10.00)
[2023-11-14 10:42] LABS: BUN/Creat Ratio 11.38 Ratio (12.00-20.00); Blood Urea Nitrogen 9.1 mg/dL (9.0-27.0); Calcium 8.6 mg/dL (8.7-10.3); Carbon Dioxide 27.1 mmol/L (21.6-31.8); Chloride 101 mmol/L (96-109); Glucose 97 mg/dL (70-110); Potassium 3.9 mmol/L (3.5-5.5); Sodium 138 mmol/L (135-145)
--- NOTE | 2023-11-14 12:04 | P.PN ---
Subjective Progress Note Date: 11/14/23 63 year old M with PMH of PPD smoking presents to the ED after being directed by his vascular surgeon for popliteal artery occlusion. He reports cramping in his left calf that started on 11/03 that was relentless. His foot felt hard and progressively got swollen throughout the day. He was seen in the ED on 11/03 where venous doppler was performed. Venous doppler 11/03 shows occlusion of the arterial vasculature. He was discharged from the ED at that time and given an appointment with vascular surgery. He reports smoking 1 PPD. He denies any other medical issues. Denies chest pain, SOB, palpitations, dizziness. In the ED he underwent extensive evaluation. BP 149/83, HR 62, T 98.1, RR 18, 98% on RA. CBC, Coag panel, CMP performed significant for neutrophils 8.1, bicarb 31, glu 103, AST 79. Lactic acid 1.4. Venous doppler 11/03 shows occlusion of the arterial vasculature. Patient started on Heparin drip. He underwent US guided right common femoral artery access, selective left lower extremity angiogram to distal superficial femoral artery, right iliofemoral angiogram and placement of thrombolysis catheter with Dr. Crowell on 11/06. Alteplase infusion was started via tPA catheter. He was taken back to the OR on 11/07 for LLE angiogram which showed minimal improvement of the flow through the main vessel. Due to clinical improvement, catheters and wires were removed. Noted to have significant calf pain with tenderness, fasciotomy was performed for concerns for compartment syndrome. He underwent LLE incisional washout and partial complex multilayer closure fasciotomy on 11/11. Heparin drip transitioned to Eliquis on 11/12. There are plans for LLE fasciotomy closure tomorrow. 11/13 Patient was seen and examined. Well controlled pain. CBC Hg 8.1 Hct 25 MCV 99.6. CMP BUN/Cr 11.38, Ca 8.6. General: no distress, appears at stated age Derm: warm, dry Head: atraumatic, normocephalic, symmetric Eyes: EOMI, no lid lag, anicteric sclera Mouth: no lip lesion, mucus membranes moist Cardiovascular: S1S2 reg, no murmur, 1+ DP pulse LLE dressing c/d/i Lungs: CTA bilateral, no rhonchi, no rales , no accessory muscle use Ext: no gross muscle atrophy, no edema, no contractures Neuro: no focal neuro deficits Psych: Alert, oriented, appropriate affect Based on my assessment of this patient, this patient meets a high complexity level of care. #Acute left lower extremity ischemia: Status post tPA catheter and infusion of alteplase 11/07 and LLE angiogram with minimal improvement on 11/07. LLE i ncisional washout and partial complex multilayer closure fasciotomy on 11/11. Continue Eliquis 5 mg PO BID. Morphine 4 mg IV Q2H PRN, Percocet 5 PO Q6H PRN for pain. Vascular surgery on board. #Left popliteal artery occlusion #Left lower extremity compartment syndrome: Status post fasciotomy 11/07 #Transaminitis: A1c as above. Lipid panel as above. #Normocytic anemia: Hg wnl on admission. No signs of active bleeding. Likely dilutional. #Thrombocytopenia: Plt wnl on admission. Likely dilutional. Monitor while on heparin infusion. #Smoker: Advised to quit. Nicotine patch 14 mg/24H patch daily. CODE STATUS: FULL CODE DVT Prophylaxis: Eliquis GI Prophylaxis: Designated medical POA if patient is not able to make medical decisions for themselves: I have reviewed the following insurance healthcare consultant notes: I have reviewed the results of the following tests: CBC, BMP I have ordered the following tests: CBC to monitor Hg I have discussed the care of this patient with the following independent histor rashmi: I have independently interpreted the following test below: I have discussed the management of this patient with the following physician: Objective - Vital Signs Vital signs: Vital Signs Temp 98.6 F 11/14/23 07:54 Pulse 67 11/14/23 07:54 Resp 16 11/14/23 07:54 BP 124/76 11/14/23 07:54 Pulse Ox 94 L 11/14/23 07:54 FiO2 Intake & Output 11/13/23 11/14/23 11/14/23 18:59 06:59 18:59 Intake Total 540 711 Balance 540 711 Weight 64 kg Intake: Oral 540 710 Blood Product 1 Other: Voiding Method Urinal Urinal # Voids 3 - Labs CBC & Chem 7: 11/14/23 06:16 11/14/23 06:16 Labs: Abnormal Lab Results - Last 24 Hours (Table) 11/14/23 11/14/23 Range/Units 06:16 06:16 RBC 2.51 L (4.40-5.60) X 10*6/uL Hgb 8.1 L (13.0-17.0) g/dL Hct 25.0 L (39.6-50.0) % MCV 99.6 H (80.0-97.0) FL MCH 32.3 H (27.0-32.0) pg Monocytes # 1.09 H (0.20-1.00) X 10*3/uL BUN/Creatinine Ratio 11.38 L (12.00-20.00) Ratio Calcium 8.6 L (8.7-10.3) mg/dL
--- NOTE | 2023-11-14 12:08 | P.PN ---
Subjective Progress Note Date: 11/14/23 Principal diagnosis: Left popliteal artery occlusion Patient seen and examined as a follow-up. No new complaints. He has been afebrile. Hemoglobin 8.1 platelet count 260,000. Dressing clean and dry. Objective - Vital Signs Vital signs: Vital Signs Temp 98.6 F 11/14/23 02:00 Pulse 66 11/14/23 02:00 Resp 16 11/14/23 02:00 BP 96/54 11/14/23 02:00 Pulse Ox 98 11/14/23 02:00 FiO2 Intake & Output 11/13/23 11/14/23 11/14/23 18:59 06:59 18:59 Intake Total 540 711 Balance 540 711 Weight 64 kg Intake: Oral 540 710 Blood Product 1 Other: Voiding Method Urinal # Voids 3 - Exam General appearance: The patient is alert, oriented, appears in no acute distress. HET: Head is normocephalic and atraumatic. Neck: Supple. Abdomen: Soft, nondistended. Extremities: Dressing to left lower extremity with Ish wrap. Right medial thigh with ecchymosis, no hematoma. Right groin with palpable femoral pulse and closure device. No hematoma or active bleeding. Neurological: No focal deficits. - Labs CBC & Chem 7: 11/14/23 06:16 11/14/23 06:16 Labs: Abnormal Lab Results - Last 24 Hours (Table) 11/13/23 11/13/23 Range/Units 06:38 06:38 RBC 2.45 L (4.40-5.60) X 10*6/uL Hgb 7.9 L (13.0-17.0) g/dL Hct 23.8 L (39.6-50.0) % MCV 97.1 H (80.0-97.0) FL MCH 32.2 H (27.0-32.0) pg Monocytes # 1.21 H (0.20-1.00) X 10*3/uL APTT 88.1 H (22.0-30.0) sec Assessment and Plan Assessment: 1. Acute left lower extremity critical limb ischemia 2. Left popliteal artery occlusion status post thrombolysis 3. Left lower extremity compartment syndrome status post fasciotomy 4. Current smoker Plan: 1. Continue Eliquis 5 mg twice daily, hold morning dose 11/15/2023 for fasciotomy closure 2. Daily CBC 3. Daily dressing change with Adaptic, 4 x 4 wet-to-dry with Kerlix and Ish wrap 4. Recommend smoking cessation. Patient currently on nicotine patch. 5. Plan for left lower extremity fasciotomy closure 11/15/2023 6. N.p.o. after midnight Thank you for this consultation, we will continue to follow. The impression and plan of care has been dictated as directed. Dr. Crowell I performed a history and examination of this patient, discussed the same with the dictator. I agree with the dictator's note ,documented as a scribe. Any additional findings or plans will be noted.
[2023-11-14 12:54] VITALS: BMI 24.2
[2023-11-15] MEDS: ONDANSETRON 4 MG/2 ML VIAL IVP STA (06:58)
[2023-11-15] MEDS: DEXAMETHASONE SOD PHOSPHATE 4 MG/ML 1 ML VIAL IVP STA (06:59)
[2023-11-15] MEDS ORDERED: ceFAZolin 1 GM/50 ML BAG (PMX) ONE (07:20)
[2023-11-15] MEDS ORDERED: LIDOCAINE 1% INJ 10MG/ML (20 ML MDV) ONE (07:20)
[2023-11-15] MEDS ORDERED: PROPOFOL 10 MG/ML 20 ML VIAL IV ONE (07:20)
[2023-11-15] MEDS ORDERED: PHENYLEPHRINE-0.9% NACL SYG 1,000 MCG/10 ML SYRINGE ONE (07:20)
[2023-11-15] MEDS ORDERED: fentaNYL (PF) 50 MCG/ML 2 ML AMP ONE (07:20)
[2023-11-15] MEDS: SODIUM CHLORIDE 0.9% 50 ML with ceFAZolin 1,000 MG IV ONE (07:25)
[2023-11-15] MEDS: HYDROmorphone 0.5 MG/0.5 ML SYRINGE IVP STA (08:22)
[2023-11-15 09:06] VITALS: RESP 16; TEMP 99.3
--- NOTE | 2023-11-15 09:32 | P.OP ---
Date of Procedure: 11/15/23 Description of Procedure: Preoperative diagnosis: Previous left lower extremity fasciotomy Postoperative diagnosis: Same Procedure: Fasciotomy closure, complex multilayer Surgeon: Aurea Crowell D.O. EBL: 1 cc IV fluids: See records Urine output: Not measured Drains: None Complications: None immediately apparent Condition: Stable to recovery Operative indication and findings: Patient is a 63-year-old male with previous arterial insufficiency requiring tPA thrombolysis and subsequent fasciotomy. He presents today for washout and closure. Risks and benefits discussed. He seems understood To proceed. Procedure in detail: Patient was taken to the operative suite and placed in supine position the left lower extremity was prepped and draped in usual sterile fashion. A preprocedural timeout performed, all parties were in agreement. The area was then cleansed once further irrigated. The deep dermal tissues were reapproximated interrupted sutures of 3-0 Vicryl. The skin was reapproximated with naveen. This was initially on the lateral side and subsequently the medial side. We were able to get full closure. Dressings were placed the patient tolerated the procedure well.
[2023-11-15 10:29] VITALS: BP 119/49; PULSE 62
--- NOTE | 2023-11-15 10:34 | P.DS ---
Providers Date of admission: 11/07/23 10:06 Expected date of discharge: 11/15/23 Attending physician: Leoncio Olvera MD Consults: 11/07/23 09:42 Consult Physician Routine Consulting Provider: Chin Mariee Consult Reason/Comments: left popliteal artery occlusion Do you want consulting provider notified?: Already Contacted Primary care physician: [facility] Course: 63 year old M with PMH of PPD smoking presents to the ED after being directed by his vascular surgeon for popliteal artery occlusion. He reports cramping in his left calf that started on 11/03 that was relentless. His foot felt hard and progressively got swollen throughout the day. He was seen in the ED on 11/03 where venous doppler was performed. Venous doppler 11/03 shows occlusion of the arterial vasculature. He was discharged from the ED at that time and given an appointment with vascular surgery. He reports smoking 1 PPD. He denies any other medical issues. Denies chest pain, SOB, palpitations, dizziness. In the ED he underwent extensive evaluation. BP 149/83, HR 62, T 98.1, RR 18, 98% on RA. CBC, Coag panel, CMP performed significant for neutrophils 8.1, bicarb 31, glu 103, AST 79. Lactic acid 1.4. Venous doppler 11/03 shows occlusion of the arterial vasculature. Patient started on Heparin drip. He underwent US guided right common femoral artery access, selective left lower extremity angiogram to distal superficial femoral artery, right iliofemoral angiogram and placement of thrombolysis catheter with Dr. Crowell on 11/06. Alteplase infusion was started via tPA catheter. He was taken back to the OR on 11/07 for LLE angiogram which showed minimal improvement of the flow through the main vessel. Due to clinical improvement, catheters and wires were removed. Noted to have significant calf pain with tenderness, fasciotomy was performed for concerns for compartment syndrome. He underwent LLE incisional washout and partial complex multilayer closure fasciotomy on 11/11. Heparin drip transitioned to Eliquis on 11/12. LLE fasciotomy closure performed on 11/14. 11/14 Patient was seen and examined. Well controlled pain. Discussed with Ivon [employer], should be cleared for discharge sometime later this afternoon. General: no distress, appears at stated age Derm: warm, dry Head: atraumatic, normocephalic, symmetric Eyes: EOMI, no lid lag, anicteric sclera Mouth: no lip lesion, mucus membranes moist Cardiovascular: S1S2 reg, no murmur, 1+ DP pulse LLE dressing c/d/i Lungs: CTA bilateral, no rhonchi, no rales , no accessory muscle use Ext: no gross muscle atrophy, no edema, no contractures Neuro: no focal neuro deficits Psych: Alert, oriented, appropriate affect Discharge Diagnosis: #Acute left lower extremity ischemia #Left popliteal artery occlusion #Left lower extremity compartment syndrome #Transaminitis #Normocytic anemia #Thrombocytopenia #Smoker This complex discharge took 35 minutes to complete. Patient Condition at Discharge: Stable Plan - Discharge Summary Discharge Rx Participant: No New Discharge Prescriptions: New Apixaban [Eliquis] 5 mg PO BID #60 tab Nicotine 14Mg/24Hr Patch [Habitrol] 1 patch TRANSDERM DAILY #30 patch Discharge Medication List Apixaban [Eliquis] 5 mg PO BID #60 tab 11/15/23 [Rx] Nicotine 14Mg/24Hr Patch [Habitrol] 1 patch TRANSDERM DAILY #30 patch 11/15/23 [Rx] Follow up Appointment(s)/Referral(s): Aurea Crowell DO [STAFF PHYSICIAN] - 2 Weeks Wily Farley DO [Primary Care Provider] - 1-2 days [facility], [NON-STAFF] - 1 Week Patient Instructions/Handouts: How to Stop Smoking (DC), Cigarette Smoking and Your Health (GEN), Fasciotomy (DC) Activity/Diet/Wound Care/Special Instructions: Activity as tolerated, limit climbing stairs. May walk on left lower extremity. No tub bathing or soaking or swimming. May shower. Watch incision site for infection including redness, drainage, or temperature greater than 100.4. If you notice he symptoms please call office Recommend smoking cessation
== END 2023-11-15 13:50 | disposition home or self-care (01) | DRG 279 ==
LOC: EC 09:12 → 3SCARD 10:06 → 2SICU 12:37 → 5NMEDONC 11-11 10:58 → 2SICU 11-11 11:31 → 5NMEDONC 11-11 22:06
PROVIDERS: ADMIT Student in an Organized Health Care Education/Training Program; ATTEND Student in an Organized Health Care Education/Training Program
PROC: B41G1ZZ Fluoroscopy of Left Lower Extremity Arteries using Low Osmolar Contrast (ICD-10-PCS; 2023-11-07)
PROC: B41F1ZZ Fluoroscopy of Right Lower Extremity Arteries using Low Osmolar Contrast (ICD-10-PCS; 2023-11-07)
PROC: 04FL3Z0 Fragmentation of Left Femoral Artery, Percutaneous Approach, Ultrasonic (ICD-10-PCS; principal; 2023-11-07 12:35)
PROC: 0KNT0ZZ Release Left Lower Leg Muscle, Open Approach (ICD-10-PCS; 2023-11-08)
PROC: 0KNT0ZZ Release Left Lower Leg Muscle, Open Approach (ICD-10-PCS; 2023-11-08)
PROC: 0KNT0ZZ Release Left Lower Leg Muscle, Open Approach (ICD-10-PCS; 2023-11-08)
PROC: 0KNT0ZZ Release Left Lower Leg Muscle, Open Approach (ICD-10-PCS; 2023-11-08)
PROC: B41C1ZZ Fluoroscopy of Pelvic Arteries using Low Osmolar Contrast (ICD-10-PCS; 2023-11-08)
PROC: 0KQT0ZZ Repair Left Lower Leg Muscle, Open Approach (ICD-10-PCS; 2023-11-12)
PROC: 3E10X8Z Irrigation of Skin and Mucous Membranes using Irrigating Substance (ICD-10-PCS; 2023-11-12)
PROC: 0JQP0ZZ Repair Left Lower Leg Subcutaneous Tissue and Fascia, Open Approach (ICD-10-PCS; 2023-11-15)
DX: I70.222 Atherosclerosis of native arteries of extremities with rest pain, left leg (principal); T79.A22A Traumatic compartment syndrome of left lower extremity, initial encounter; F17.210 Nicotine dependence, cigarettes, uncomplicated; D69.6 Thrombocytopenia, unspecified; D50.0 Iron deficiency anemia secondary to blood loss (chronic); Z79.01 Long term (current) use of anticoagulants; Z96.643 Presence of artificial hip joint, bilateral; Z71.6 Tobacco abuse counseling
CPT/HCPCS: 37211; 37214; 75710; 76937; 80048; 80053; 80061; 83036; 83605; 85025; 85027; 85384; 85610; 85730; 86850; 86900; 86901; 96365; 96366; 99285

== ENCOUNTER → 2024-06-16 | Outpatient (CLI) | payer OTHER ==
--- NOTE | 2024-06-16 16:24 | XR ---
EXAMINATION TYPE: XR chest 2V DATE OF EXAM: 06/16/2024 3:53 PM COMPARISON: None TECHNIQUE: XR chest 2V Frontal and lateral views of the chest. CLINICAL INDICATION:Male, 64 years old with history of [id number] COUGH,SOB; FINDINGS: Lungs/Pleura: There is flattening of the diaphragm with increased lucency of the lungs. No evidence o f pneumothorax, pleural effusion or focal consolidation. Pulmonary vascularity: Unremarkable. Heart/mediastinum: Cardiomediastinal silhouette is unremarkable. Musculoskeletal: No acute osseous pathology. Mild multilevel degenerative disc disease. IMPRESSION: 1. No acute cardiopulmonary disease process. 2. COPD changes. [facility], , 06/16/2024 4:21 PM
== END | disposition home or self-care (01) ==
LOC: RADXRYALE 15:43
PROVIDERS: ATTEND Physician Assistant Medical
DX: J44.9 Chronic obstructive pulmonary disease, unspecified (principal)
CPT/HCPCS: 71046